=== PATIENT | male | born 1960 | race Caucasian/White ===

== ENCOUNTER 2019-10-14 10:38 | Observation (INO) ==
[2019-10-14 11:50] LABS: Basophils # 0.1 K/mcL (0.0-0.2); Basophils % 0.4 %; Eosinophils # 0.3 K/mcL (0.0-0.6); Eosinophils % 2.2 %; Hematocrit 53.7 % (37.5-50.1); Hemoglobin 17.3 g/dL (12.9-16.9); Immature Granulocytes % 0.7 % (0-4); Lymphocytes # 2.1 K/mcL (0.6-4.6); Lymphocytes % 18.6 %; Mean Corpuscular HGB Conc 32.2 g/dL (31.6-35.5); Mean Corpuscular Hemoglobin 27.4 pg (28.0-33.3); Mean Corpuscular Volume 85.1 fL (83.0-100.0); Mean Platelet Volume 9.1 fL (9.4-12.4); Monocytes % 8.4 %; Neutrophils # 7.9 K/mcL (1.6-8.9); Platelet Count 243 K/mcL (140-400); Red Blood Count 6.31 M/mcL (4.19-5.50); Red Cell Distribution Width 17.6 % (11.5-14.5); Segmented Neutrophils % 69.7 %; White Blood Count 11.3 K/mcL (4.3-11.1)
[2019-10-14 12:07] LABS: Prothrombin Time 22.6 Seconds (9.4-12.1)
[2019-10-14] MEDS ORDERED: Naloxone 0.4 MG/ML INJ IVP PRN (12:12)
[2019-10-14 12:16] LABS: BUN/Creatinine Ratio 17 (6-26); Blood Urea Nitrogen 20 mg/dL (8-23); Calcium 9.1 mg/dL (8.6-10.3); Carbon Dioxide 23 mEq/L (23-29); Chloride 107 mEq/L (98-107); Glucose 89 mg/dL (70-105); Osmolality,Calculated 284 (280-300); Potassium 4.6 mEq/L (3.5-5.1); Sodium 136 mEq/L (136-145); eGFR For African Americans > 60 (> 60); eGFR For Non-African Americans > 60 (> 60)
[2019-10-14] MEDS: Nicotine 21 MG PATCH.TD24 TD SCH (13:18)
[2019-10-14] MEDS: *HR* OxyCODONE Immed Rel 5 MG TABLET PO PRN ×2 (13:18→21:20)
[2019-10-14] MEDS: DilTIAZem CD (24hr) 120 MG CAP.ER.24H PO SCH (13:19)
[2019-10-14] MEDS: Insulin DETEMIR 100 UNIT/ML X5UNITS SQ SCH ×2 (13:19→21:21)
[2019-10-14] MEDS: Gabapentin 400 MG CAPSULE PO SCH ×2 (13:19→21:21)
[2019-10-14] MEDS ORDERED: *HR* Heparin 5,000 UNIT/ML VIAL SQ SCH (14:00)
[2019-10-14] MEDS ORDERED: 0.9 % Sodium Chloride 250 ML ONE ×2 (14:39→18:29)
[2019-10-14] MEDS: Insulin LISPRO 300 UNITS/3 ML VIAL SQ SCH ×2 (18:56→21:16)
[2019-10-15] MEDS: *HR* HYDROcodone/Acet 5/325 mg TABLET PO PRN ×2 (02:25→23:17)
[2019-10-15 07:15] LABS: INR 1.3; Prothrombin Time 15.3 Seconds (9.4-12.1)
[2019-10-15] MEDS ORDERED: NON-FORMULARY MEDICATION 1 EACH EACH (Ezetimibe [Zetia] 10 MG) PO SCH (09:00)
[2019-10-15] MEDS: Insulin LISPRO 300 UNITS/3 ML VIAL SQ SCH ×4 (11:23→20:51)
[2019-10-15] MEDS: Insulin DETEMIR 100 UNIT/ML X5UNITS SQ SCH ×2 (11:23→21:31)
[2019-10-15] MEDS: Gabapentin 400 MG CAPSULE PO SCH ×3 (11:30→21:31)
[2019-10-15] MEDS: DilTIAZem CD (24hr) 120 MG CAP.ER.24H PO SCH (11:30)
[2019-10-15] MEDS: Finasteride 5 MG TABLET PO SCH (11:30)
[2019-10-15] MEDS: *HR* OxyCODONE Immed Rel 5 MG TABLET PO PRN ×2 (11:34→19:45)
[2019-10-15] MEDS: Nicotine 21 MG PATCH.TD24 TD SCH (11:35)
[2019-10-15] MEDS ORDERED: *HR* Heparin 10,000 UNIT/10 ML VIAL ONE (14:11)
[2019-10-15] MEDS ORDERED: Isovue-300 150 ML INFUS..BTL ONE (14:11)
[2019-10-15] MEDS ORDERED: 0.9 % Sodium Chloride 1,000 ML ONE ×2 (14:11→14:51)
[2019-10-15] MEDS ORDERED: *HR* Midazolam HCl 2 MG/2 ML VIAL ONE (14:50)
[2019-10-15] MEDS ORDERED: *HR* FentaNYL (PF) 100 MCG/2 ML VIAL ONE ×2 (14:50→15:47)
[2019-10-15] MEDS ORDERED: *HR* Alteplase (Cathflo) 2 MG VIAL ONE (15:34)
[2019-10-15] MEDS ORDERED: *HR* Metoprolol 5 MG/5 ML VIAL IVP ONE (15:43)
[2019-10-15] MEDS ORDERED: Water for inj. (sterile) 20 ML ONE (16:01)
[2019-10-15] MEDS ORDERED: Ondansetron 4 MG/2 ML VIAL IVP PRN (16:43)
[2019-10-15] MEDS ORDERED: Acetaminophen 325 MG TABLET PO PRN (16:43)
[2019-10-15] MEDS ORDERED: *HR* Atropine Sulfate 1 MG/10 ML SYRINGE ONE (18:32)
[2019-10-16] MEDS: *HR* OxyCODONE Immed Rel 5 MG TABLET PO PRN (02:08)
[2019-10-16 04:17] LABS: Basophils # 0.1 K/mcL (0.0-0.2); Basophils % 0.5 %; Eosinophils # 0.2 K/mcL (0.0-0.6); Eosinophils % 2.1 %; Hemoglobin 16.1 g/dL (12.9-16.9); Immature Granulocytes % 0.4 % (0-4); Lymphocytes # 2.1 K/mcL (0.6-4.6); Lymphocytes % 21.7 %; Mean Corpuscular Hemoglobin 26.9 pg (28.0-33.3); Mean Corpuscular Volume 86.8 fL (83.0-100.0); Mean Platelet Volume 9.2 fL (9.4-12.4); Monocytes # 1.1 K/mcL (0.0-1.3); Monocytes % 11.1 %; Neutrophils # 6.3 K/mcL (1.6-8.9); Platelet Count 227 K/mcL (140-400); Red Blood Count 5.99 M/mcL (4.19-5.50); Red Cell Distribution Width 17.3 % (11.5-14.5); Segmented Neutrophils % 64.2 %; White Blood Count 9.8 K/mcL (4.3-11.1)
[2019-10-16 04:28] LABS: BUN/Creatinine Ratio 19 (6-26); Blood Urea Nitrogen 15 mg/dL (8-23); Calcium 8.6 mg/dL (8.6-10.3); Carbon Dioxide 23 mEq/L (23-29); Chloride 106 mEq/L (98-107); Glucose 112 mg/dL (70-105); Osmolality,Calculated 278 (280-300); Potassium 4.5 mEq/L (3.5-5.1); Sodium 133 mEq/L (136-145); eGFR For African Americans > 60 (> 60); eGFR For Non-African Americans > 60 (> 60)
[2019-10-16] MEDS: Insulin LISPRO 300 UNITS/3 ML VIAL SQ SCH ×2 (09:04→13:05)
[2019-10-16] MEDS: Finasteride 5 MG TABLET PO SCH (09:05)
[2019-10-16] MEDS: Gabapentin 400 MG CAPSULE PO SCH ×2 (09:06→13:05)
[2019-10-16] MEDS: DilTIAZem CD (24hr) 120 MG CAP.ER.24H PO SCH (09:06)
[2019-10-16] MEDS: *HR* HYDROcodone/Acet 5/325 mg TABLET PO PRN ×2 (09:06→16:01)
[2019-10-16] MEDS: Nicotine 21 MG PATCH.TD24 TD SCH (09:07)
[2019-10-16] MEDS: Insulin DETEMIR 100 UNIT/ML X5UNITS SQ SCH (09:08)
[2019-10-16 15:26] VITALS: BP 154/80
== END 2019-10-16 16:38 | disposition home health service (06) ==
LOC: 3ANU → SUATTDRO 12:12 → 2NNU 10-15 14:51
PROVIDERS: ADMIT Internal Medicine; ATTEND Internal Medicine

== ENCOUNTER 2019-10-22 15:52 | Inpatient (IN) ==
[2019-10-22 18:25] LABS: Basophils # 0.1 K/mcL (0.0-0.2); Basophils % 0.6 %; Eosinophils # 0.2 K/mcL (0.0-0.6); Eosinophils % 2.6 %; Hematocrit 51.5 % (37.5-50.1); Hemoglobin 16.6 g/dL (12.9-16.9); Immature Granulocytes % 0.8 % (0-4); Lymphocytes # 2.2 K/mcL (0.6-4.6); Lymphocytes % 23.9 %; Mean Corpuscular HGB Conc 32.2 g/dL (31.6-35.5); Mean Corpuscular Hemoglobin 27.2 pg (28.0-33.3); Mean Corpuscular Volume 84.4 fL (83.0-100.0); Monocytes # 0.9 K/mcL (0.0-1.3); Monocytes % 9.8 %; Neutrophils # 5.6 K/mcL (1.6-8.9); Platelet Count 286 K/mcL (140-400); Red Cell Distribution Width 16.9 % (11.5-14.5); Segmented Neutrophils % 62.3 %
[2019-10-22 18:40] LABS: BUN/Creatinine Ratio 17 (6-26); Blood Urea Nitrogen 17 mg/dL (8-23); C-Reactive Protein 31 mg/L (Less than 10); Calcium 8.5 mg/dL (8.6-10.3); Carbon Dioxide 23 mEq/L (23-29); Chloride 107 mEq/L (98-107); Glucose 146 mg/dL (70-105); Osmolality,Calculated 278 (280-300); Potassium 4.4 mEq/L (3.5-5.1); Sodium 132 mEq/L (136-145); eGFR For African Americans > 60 (> 60); eGFR For Non-African Americans > 60 (> 60)
[2019-10-22] MEDS ORDERED: Piperacillin/Tazobactam 3.375 GM in 0.9 % Sodium Chloride Mini Bag 100 ML IVPB ONE (18:46)
[2019-10-22] MEDS ORDERED: Naloxone 0.4 MG/ML INJ IVP PRN (21:13)
[2019-10-22] MEDS ORDERED: Ondansetron 4 MG/2 ML VIAL IVP PRN (22:49)
[2019-10-22] MEDS ORDERED: Acetaminophen 325 MG TABLET PO PRN (22:49)
[2019-10-22] MEDS: Nicotine 21 MG PATCH.TD24 TD SCH (23:46)
[2019-10-22] MEDS: *HR* HYDROmorphone (PF) 1 MG/ML SYRINGE IVP PRN (23:48)
[2019-10-23] MEDS: 0.9 % Sodium Chloride 1,000 ML IVC SCH (00:36)
[2019-10-23 03:07] LABS: Basophils % 0.5 %; Eosinophils # 0.2 K/mcL (0.0-0.6); Eosinophils % 2.7 %; Hematocrit 49.1 % (37.5-50.1); Hemoglobin 15.8 g/dL (12.9-16.9); Immature Granulocytes % 0.6 % (0-4); Lymphocytes # 2.3 K/mcL (0.6-4.6); Lymphocytes % 26.2 %; Mean Corpuscular HGB Conc 32.2 g/dL (31.6-35.5); Mean Corpuscular Hemoglobin 27.3 pg (28.0-33.3); Mean Corpuscular Volume 84.9 fL (83.0-100.0); Mean Platelet Volume 9.5 fL (9.4-12.4); Monocytes % 11.2 %; Neutrophils # 5.2 K/mcL (1.6-8.9); Platelet Count 256 K/mcL (140-400); Red Blood Count 5.78 M/mcL (4.19-5.50); Segmented Neutrophils % 58.8 %; White Blood Count 8.8 K/mcL (4.3-11.1)
[2019-10-23 03:23] LABS: BUN/Creatinine Ratio 17 (6-26); Blood Urea Nitrogen 16 mg/dL (8-23); Calcium 8.3 mg/dL (8.6-10.3); Carbon Dioxide 24 mEq/L (23-29); Chloride 106 mEq/L (98-107); Glucose 159 mg/dL (70-105); Magnesium 1.9 mg/dL (1.6-2.6); Osmolality,Calculated 283 (280-300); Potassium 4.3 mEq/L (3.5-5.1); Sodium 134 mEq/L (136-145); eGFR For African Americans > 60 (> 60); eGFR For Non-African Americans > 60 (> 60)
[2019-10-23] MEDS: *HR* HYDROmorphone (PF) 1 MG/ML SYRINGE IVP PRN ×4 (04:04→23:22)
[2019-10-23] MEDS: Piperacillin/Tazobactam 3.375 GM in 0.9 % Sodium Chloride Mini Bag 100 ML IVPB SCH ×3 (04:06→21:57)
[2019-10-23] MEDS ORDERED: D5% in Water 1,000 ML IVC PRN (09:43)
[2019-10-23] MEDS ORDERED: *HR* Dextrose 50 % in Water (Syg) 50 ML SYRINGE IVP PRN (09:43)
[2019-10-23] MEDS ORDERED: Dextrose Gel 15 GM/37.5 ML TUBE PO PRN ×2 (09:43)
[2019-10-23] MEDS: Insulin LISPRO 300 UNITS/3 ML VIAL SQ SCH ×3 (12:44→21:46)
[2019-10-23 18:33] LABS: Heparin anti-factor XA UFH < 0.04 IU/mL (0.30-0.70)
[2019-10-23 18:34] LABS: INR 2.5; Prothrombin Time 28.3 Seconds (9.4-12.1)
[2019-10-23] MEDS ORDERED: Dexamethasone 4 MG/ML VIAL ONE (19:30)
[2019-10-23] MEDS ORDERED: Ondansetron 4 MG/2 ML VIAL ONE (19:30)
[2019-10-23] MEDS ORDERED: Lidocaine -MPF 2% 2 ML VIAL ONE (19:30)
[2019-10-23] MEDS ORDERED: *HR* Midazolam HCl 2 MG/2 ML VIAL ONE (19:30)
[2019-10-23] MEDS ORDERED: *HR* Propofol 200 MG/20 ML VIAL IVP ONE (19:32)
[2019-10-23] MEDS ORDERED: *HR* FentaNYL (PF) 100 MCG/2 ML VIAL ONE (19:33)
[2019-10-23] MEDS ORDERED: *HR* HYDROmorphone PF 0.5 MG/0.5 ML SYRINGE IVP PRN (19:51)
[2019-10-23] MEDS ORDERED: *HR* OxyCODONE Immed Rel 5 MG TABLET PO PRN (19:51)
[2019-10-23] MEDS: Gabapentin 400 MG CAPSULE PO SCH (21:57)
[2019-10-23] MEDS: Nicotine 21 MG PATCH.TD24 TD SCH (23:14)
[2019-10-24] MEDS: Insulin LISPRO 300 UNITS/3 ML VIAL SQ SCH ×5 (00:33→21:10)
[2019-10-24] MEDS ORDERED: *HR* Heparin 5,000 UNIT/ML VIAL IVP PRN ×2 (03:30)
[2019-10-24] MEDS: *HR* HYDROmorphone (PF) 1 MG/ML SYRINGE IVP PRN (03:35)
[2019-10-24] MEDS: Piperacillin/Tazobactam 3.375 GM in 0.9 % Sodium Chloride Mini Bag 100 ML IVPB SCH ×3 (03:40→20:51)
[2019-10-24] MEDS ORDERED: Heparin 25,000 UNIT/250 ML D5W 25,000 UNIT/250 ML IV.SOLN IVC SCH (04:00)
[2019-10-24] MEDS ORDERED: *HR* HYDROmorphone (PF) 1 MG/ML SYRINGE ONE ×2 (08:16)
[2019-10-24] MEDS ORDERED: Piperacillin/Tazobactam 3.375 GM VIAL ONE (08:16)
[2019-10-24] MEDS ORDERED: Gabapentin 400 MG CAPSULE ONE ×2 (08:16)
[2019-10-24] MEDS ORDERED: 0.9 % Sodium Chloride (Mini-Bag +) 100 ML IVBAG ONE (08:16)
[2019-10-24] MEDS ORDERED: DilTIAZem CD (24hr) 120 MG CAP.ER.24H PO ONE (08:16)
[2019-10-24 14:29] LABS: INR 2.7; Prothrombin Time 30.4 Seconds (9.4-12.1)
[2019-10-24] MEDS ORDERED: Sennosides/Docusate Sodium TABLET PO PRN (15:50)
[2019-10-24] MEDS ORDERED: *HR* OxyCODONE Immed Rel 5 MG TABLET PO PRN (15:58)
[2019-10-24 16:52] LABS: Basophils % 0.2 %; Eosinophils % 0.1 %; Hemoglobin 16.4 g/dL (12.9-16.9); Immature Granulocytes % 0.7 % (0-4); Lymphocytes # 1.2 K/mcL (0.6-4.6); Mean Corpuscular HGB Conc 31.5 g/dL (31.6-35.5); Mean Corpuscular Hemoglobin 26.5 pg (28.0-33.3); Mean Corpuscular Volume 83.9 fL (83.0-100.0); Mean Platelet Volume 9.3 fL (9.4-12.4); Monocytes # 0.7 K/mcL (0.0-1.3); Monocytes % 6.6 %; Platelet Count 302 K/mcL (140-400); Red Cell Distribution Width 16.7 % (11.5-14.5); Segmented Neutrophils % 81.4 %; White Blood Count 11.1 K/mcL (4.3-11.1)
[2019-10-24] MEDS ORDERED: polyethylene glycoL 3350 17 GM POWD.PACK PO PRN (18:51)
[2019-10-24] MEDS: DilTIAZem CD (24hr) 120 MG CAP.ER.24H PO SCH (18:53)
[2019-10-24] MEDS: Gabapentin 400 MG CAPSULE PO SCH ×2 (18:53→20:53)
[2019-10-24] MEDS ORDERED: Insulin DETEMIR 100 UNIT/ML X5UNITS SQ SCH (21:00)
[2019-10-24] MEDS: *HR* OxyCODONE Immed Rel 5 MG TABLET PO PRN (21:07)
[2019-10-24] MEDS: Nicotine 21 MG PATCH.TD24 TD SCH (23:03)
[2019-10-25 01:06] LABS: BUN/Creatinine Ratio 19 (6-26); Blood Urea Nitrogen 18 mg/dL (8-23); Calcium 8.8 mg/dL (8.6-10.3); Carbon Dioxide 21 mEq/L (23-29); Chloride 102 mEq/L (98-107); Glucose 211 mg/dL (70-105); Osmolality,Calculated 278 (280-300); Potassium 5.2 mEq/L (3.5-5.1); Sodium 130 mEq/L (136-145); eGFR For African Americans > 60 (> 60); eGFR For Non-African Americans > 60 (> 60)
[2019-10-25] MEDS: *HR* OxyCODONE Immed Rel 5 MG TABLET PO PRN ×5 (04:21→22:06)
[2019-10-25] MEDS: Piperacillin/Tazobactam 3.375 GM in 0.9 % Sodium Chloride Mini Bag 100 ML IVPB SCH ×3 (04:22→21:35)
[2019-10-25 05:37] LABS: Basophils # 0.1 K/mcL (0.0-0.2); Basophils % 0.6 %; Eosinophils # 0.1 K/mcL (0.0-0.6); Eosinophils % 1.5 %; Hematocrit 51.9 % (37.5-50.1); Hemoglobin 16.3 g/dL (12.9-16.9); Immature Granulocytes % 0.6 % (0-4); Lymphocytes # 2.3 K/mcL (0.6-4.6); Mean Corpuscular HGB Conc 31.4 g/dL (31.6-35.5); Mean Corpuscular Hemoglobin 26.5 pg (28.0-33.3); Mean Corpuscular Volume 84.4 fL (83.0-100.0); Mean Platelet Volume 9.2 fL (9.4-12.4); Monocytes % 10.4 %; Platelet Count 277 K/mcL (140-400); Red Blood Count 6.15 M/mcL (4.19-5.50); Red Cell Distribution Width 16.3 % (11.5-14.5); Segmented Neutrophils % 62.9 %; White Blood Count 9.6 K/mcL (4.3-11.1)
[2019-10-25 05:46] LABS: INR 1.4; Prothrombin Time 16.1 Seconds (9.4-12.1)
[2019-10-25] MEDS: Finasteride 5 MG TABLET PO SCH (08:08)
[2019-10-25] MEDS: Furosemide 40 MG TABLET PO SCH (08:09)
[2019-10-25] MEDS: DilTIAZem CD (24hr) 120 MG CAP.ER.24H PO SCH (08:09)
[2019-10-25] MEDS: Gabapentin 400 MG CAPSULE PO SCH ×3 (08:09→22:02)
[2019-10-25] MEDS: Psyllium 1 PACKET POWD.PACK PO SCH (08:10)
[2019-10-25] MEDS: Insulin LISPRO 300 UNITS/3 ML VIAL SQ SCH ×4 (08:24→21:56)
[2019-10-25] MEDS: *HR* Enoxaparin 100 MG/ML SYRINGE SQ SCH (17:43)
[2019-10-25] MEDS: Insulin DETEMIR 100 UNIT/ML X5UNITS SQ SCH (21:37)
[2019-10-25] MEDS: Nicotine 21 MG PATCH.TD24 TD SCH (22:08)
[2019-10-26] MEDS: *HR* OxyCODONE Immed Rel 5 MG TABLET PO PRN ×5 (02:09→22:20)
[2019-10-26] MEDS: Piperacillin/Tazobactam 3.375 GM in 0.9 % Sodium Chloride Mini Bag 100 ML IVPB SCH ×3 (05:09→22:22)
[2019-10-26] MEDS: *HR* Enoxaparin 100 MG/ML SYRINGE SQ SCH (05:10)
[2019-10-26 07:37] LABS: Basophils # 0.1 K/mcL (0.0-0.2); Basophils % 0.9 %; Eosinophils # 0.3 K/mcL (0.0-0.6); Eosinophils % 3.2 %; Hematocrit 50.5 % (37.5-50.1); Hemoglobin 16.5 g/dL (12.9-16.9); Lymphocytes # 2.3 K/mcL (0.6-4.6); Lymphocytes % 24.2 %; Mean Corpuscular HGB Conc 32.7 g/dL (31.6-35.5); Mean Corpuscular Hemoglobin 27.5 pg (28.0-33.3); Mean Platelet Volume 9.2 fL (9.4-12.4); Monocytes # 1.1 K/mcL (0.0-1.3); Monocytes % 11.4 %; Neutrophils # 5.6 K/mcL (1.6-8.9); Platelet Count 274 K/mcL (140-400); Red Blood Count 6.01 M/mcL (4.19-5.50); Segmented Neutrophils % 59.3 %; White Blood Count 9.4 K/mcL (4.3-11.1)
[2019-10-26 07:48] LABS: INR 1.2
[2019-10-26 07:56] LABS: BUN/Creatinine Ratio 28 (6-26); Blood Urea Nitrogen 27 mg/dL (8-23); Calcium 8.8 mg/dL (8.6-10.3); Carbon Dioxide 24 mEq/L (23-29); Chloride 102 mEq/L (98-107); Glucose 197 mg/dL (70-105); Osmolality,Calculated 285 (280-300); Potassium 4.1 mEq/L (3.5-5.1); Sodium 132 mEq/L (136-145); eGFR For African Americans > 60 (> 60); eGFR For Non-African Americans > 60 (> 60)
[2019-10-26] MEDS: Furosemide 40 MG TABLET PO SCH (08:13)
[2019-10-26] MEDS: Finasteride 5 MG TABLET PO SCH (08:13)
[2019-10-26] MEDS: Psyllium 1 PACKET POWD.PACK PO SCH (08:14)
[2019-10-26] MEDS: Gabapentin 400 MG CAPSULE PO SCH ×3 (08:15→22:32)
[2019-10-26] MEDS: DilTIAZem CD (24hr) 120 MG CAP.ER.24H PO SCH (08:15)
[2019-10-26] MEDS: Insulin LISPRO 300 UNITS/3 ML VIAL SQ SCH ×4 (08:18→23:17)
[2019-10-26] MEDS: Apixaban 5 MG TABLET PO SCH ×2 (12:24→22:32)
[2019-10-26] MEDS: 0.9 % Sodium Chloride 1,000 ML IVC SCH (22:08)
[2019-10-26] MEDS: Nicotine 21 MG PATCH.TD24 TD SCH (22:33)
[2019-10-26] MEDS: Insulin DETEMIR 100 UNIT/ML X5UNITS SQ SCH (23:17)
[2019-10-27 03:10] LABS: Basophils # 0.1 K/mcL (0.0-0.2); Eosinophils # 0.3 K/mcL (0.0-0.6); Hematocrit 50.2 % (37.5-50.1); Hemoglobin 16.2 g/dL (12.9-16.9); Immature Granulocytes % 1.3 % (0-4); Mean Corpuscular HGB Conc 32.3 g/dL (31.6-35.5); Mean Corpuscular Volume 83.7 fL (83.0-100.0); Mean Platelet Volume 9.3 fL (9.4-12.4); Monocytes # 1.1 K/mcL (0.0-1.3); Monocytes % 12.1 %; Neutrophils # 5.5 K/mcL (1.6-8.9); Platelet Count 275 K/mcL (140-400); Red Cell Distribution Width 15.5 % (11.5-14.5); Segmented Neutrophils % 60.6 %; White Blood Count 9.1 K/mcL (4.3-11.1)
[2019-10-27 03:32] LABS: BUN/Creatinine Ratio 26 (6-26); Blood Urea Nitrogen 22 mg/dL (8-23); Calcium 8.6 mg/dL (8.6-10.3); Carbon Dioxide 22 mEq/L (23-29); Chloride 102 mEq/L (98-107); Glucose 242 mg/dL (70-105); Osmolality,Calculated 283 (280-300); Potassium 4.3 mEq/L (3.5-5.1); Sodium 131 mEq/L (136-145); eGFR For African Americans > 60 (> 60); eGFR For Non-African Americans > 60 (> 60)
[2019-10-27] MEDS: Piperacillin/Tazobactam 3.375 GM in 0.9 % Sodium Chloride Mini Bag 100 ML IVPB SCH ×3 (04:50→21:28)
[2019-10-27] MEDS: *HR* OxyCODONE Immed Rel 5 MG TABLET PO PRN ×4 (04:51→21:26)
[2019-10-27] MEDS: Furosemide 40 MG TABLET PO SCH (08:32)
[2019-10-27] MEDS: Apixaban 5 MG TABLET PO SCH ×2 (08:32→21:26)
[2019-10-27] MEDS: Gabapentin 400 MG CAPSULE PO SCH ×3 (08:33→21:27)
[2019-10-27] MEDS: DilTIAZem CD (24hr) 120 MG CAP.ER.24H PO SCH (08:33)
[2019-10-27] MEDS: Finasteride 5 MG TABLET PO SCH (08:33)
[2019-10-27] MEDS: Insulin LISPRO 300 UNITS/3 ML VIAL SQ SCH ×4 (08:37→21:27)
[2019-10-27] MEDS: Psyllium 1 PACKET POWD.PACK PO SCH (11:24)
[2019-10-27] MEDS ORDERED: Insulin DETEMIR 100 UNIT/ML X5UNITS SQ SCH (21:00)
[2019-10-27] MEDS: Nicotine 21 MG PATCH.TD24 TD SCH (21:27)
[2019-10-28 01:28] LABS: Hematocrit 48.8 % (37.5-50.1); Hemoglobin 15.8 g/dL (12.9-16.9); Mean Corpuscular HGB Conc 32.4 g/dL (31.6-35.5); Mean Corpuscular Hemoglobin 27.1 pg (28.0-33.3); Mean Corpuscular Volume 83.7 fL (83.0-100.0); Mean Platelet Volume 9.3 fL (9.4-12.4); Platelet Count 256 K/mcL (140-400); Red Blood Count 5.83 M/mcL (4.19-5.50); Red Cell Distribution Width 15.3 % (11.5-14.5); White Blood Count 10.5 K/mcL (4.3-11.1)
[2019-10-28] MEDS: *HR* OxyCODONE Immed Rel 5 MG TABLET PO PRN ×3 (01:35→12:52)
[2019-10-28 01:46] LABS: BUN/Creatinine Ratio 29 (6-26); Blood Urea Nitrogen 28 mg/dL (8-23); Calcium 8.7 mg/dL (8.6-10.3); Carbon Dioxide 23 mEq/L (23-29); Chloride 102 mEq/L (98-107); Glucose 193 mg/dL (70-105); Osmolality,Calculated 283 (280-300); Potassium 4.3 mEq/L (3.5-5.1); Sodium 131 mEq/L (136-145); eGFR For African Americans > 60 (> 60); eGFR For Non-African Americans > 60 (> 60)
[2019-10-28] MEDS: Piperacillin/Tazobactam 3.375 GM in 0.9 % Sodium Chloride Mini Bag 100 ML IVPB SCH ×2 (03:50→12:51)
[2019-10-28] MEDS: Psyllium 1 PACKET POWD.PACK PO SCH (08:57)
[2019-10-28] MEDS: Apixaban 5 MG TABLET PO SCH (08:58)
[2019-10-28] MEDS: Finasteride 5 MG TABLET PO SCH (08:58)
[2019-10-28] MEDS: DilTIAZem CD (24hr) 120 MG CAP.ER.24H PO SCH (08:59)
[2019-10-28] MEDS: Gabapentin 400 MG CAPSULE PO SCH ×2 (08:59→12:51)
[2019-10-28] MEDS: Furosemide 40 MG TABLET PO SCH (08:59)
[2019-10-28] MEDS ORDERED: lisinopriL 5 MG TABLET PO SCH (09:00)
[2019-10-28] MEDS: Insulin LISPRO 300 UNITS/3 ML VIAL SQ SCH ×2 (09:01→12:54)
[2019-10-28] MEDS ORDERED: Sennosides/Docusate Sodium TABLET PO SCH (11:15)
[2019-10-28 11:39] VITALS: BP 124/66
[2019-10-28] MEDS ORDERED: Insulin LISPRO 300 UNITS/3 ML VIAL SQ SCH (12:00)
[2019-10-28] MEDS ORDERED: levoFLOXacin 750 MG TABLET PO SCH (14:30)
[2019-10-28] MEDS ORDERED: Aminoglycoside Consult 1 EACH MC ONE (16:33)
== END 2019-10-28 16:34 | disposition home health service (06) | DRG 256 ==
LOC: EMEROOARM 15:52 → 3NENU 15:52 → SUATTDRO 21:19 → 3NENU 21:55
PROVIDERS: ADMIT Student in an Organized Health Care Education/Training Program; ATTEND Student in an Organized Health Care Education/Training Program

== ENCOUNTER 2020-01-01 09:52 | Inpatient (IN) ==
[2020-01-01] MEDS ORDERED: Isovue-370 500 ML BOTTLE IVP ONE (11:13)
[2020-01-01] MEDS ORDERED: Piperacillin/Tazobactam 3.375 GM in 0.9 % Sodium Chloride Mini Bag 100 ML IVPB ONE (11:14)
[2020-01-01] MEDS ORDERED: 0.9 % Sodium Chloride 1,000 ML IVC ONE ×2 (11:15→12:05)
[2020-01-01] MEDS ORDERED: Morphine Sulfate 2 MG/ML SYRINGE IVP ONE ×2 (11:15→12:05)
[2020-01-01 11:34] LABS: Basophils # 0.1 K/mcL (0.0-0.2); Basophils % 0.4 %; Eosinophils # 0.2 K/mcL (0.0-0.6); Hematocrit 45.6 % (37.5-50.1); Hemoglobin 14.3 g/dL (12.9-16.9); Lymphocytes # 1.9 K/mcL (0.6-4.6); Lymphocytes % 12.6 %; Mean Corpuscular HGB Conc 31.4 g/dL (31.6-35.5); Mean Corpuscular Hemoglobin 26.7 pg (28.0-33.3); Mean Corpuscular Volume 85.2 fL (83.0-100.0); Monocytes # 1.1 K/mcL (0.0-1.3); Platelet Count 445 K/mcL (140-400); Red Blood Count 5.35 M/mcL (4.19-5.50); Red Cell Distribution Width 16.3 % (11.5-14.5); White Blood Count 15.3 K/mcL (4.3-11.1)
[2020-01-01] MEDS ORDERED: Vancomycin 1,500 MG/265 ML IV.SOLN IVPB ONE (12:00)
[2020-01-01 12:01] LABS: BUN/Creatinine Ratio 18 (6-26); Blood Urea Nitrogen 17 mg/dL (8-23); C-Reactive Protein 55 mg/L (Less than 10); Carbon Dioxide 21 mEq/L (23-29); Chloride 102 mEq/L (98-107); Glucose 127 mg/dL (70-105); Osmolality,Calculated 279 (280-300); Potassium 4.8 mEq/L (3.5-5.1); Sodium 133 mEq/L (136-145); eGFR For African Americans > 60 (> 60); eGFR For Non-African Americans > 60 (> 60)
[2020-01-01] MEDS ORDERED: Acetaminophen 325 MG TABLET PO PRN (14:02)
[2020-01-01] MEDS ORDERED: Ondansetron ODT 4 MG TAB.RAPDIS SL PRN (14:02)
[2020-01-01] MEDS ORDERED: Dextrose Gel 15 GM/37.5 ML TUBE PO PRN ×2 (14:02)
[2020-01-01] MEDS ORDERED: Naloxone 0.4 MG/ML INJ IVP PRN (14:02)
[2020-01-01] MEDS ORDERED: *HR* Dextrose 50 % in Water (Syg) 50 ML SYRINGE IVP PRN (14:02)
[2020-01-01] MEDS ORDERED: D5% in Water 1,000 ML IVC PRN (14:02)
[2020-01-01] MEDS ORDERED: Vancomycin (wt based) 1,000 MG VIAL IVPB SCH (15:00)
[2020-01-01] MEDS ORDERED: *HR* Heparin 5,000 UNIT/ML VIAL IVP PRN ×2 (19:52)
[2020-01-01] MEDS ORDERED: *HR* Heparin 5,000 UNIT/ML VIAL IVP ONE (19:52)
[2020-01-01] MEDS ORDERED: Heparin 25,000 UNIT/250 ML D5W 25,000 UNIT/250 ML IV.SOLN IVC SCH (20:00)
[2020-01-01] MEDS: Insulin LISPRO 300 UNITS/3 ML VIAL SQ SCH ×2 (20:12→20:26)
[2020-01-01 20:15] LABS: Hematocrit 41.9 % (37.5-50.1); Hemoglobin 13.2 g/dL (12.9-16.9); Mean Corpuscular HGB Conc 31.5 g/dL (31.6-35.5); Mean Corpuscular Hemoglobin 26.8 pg (28.0-33.3); Mean Corpuscular Volume 85.2 fL (83.0-100.0); Mean Platelet Volume 8.9 fL (9.4-12.4); Platelet Count 367 K/mcL (140-400); Red Blood Count 4.92 M/mcL (4.19-5.50); Red Cell Distribution Width 16.3 % (11.5-14.5); White Blood Count 12.5 K/mcL (4.3-11.1)
[2020-01-01 20:19] LABS: Heparin anti-factor XA UFH 0.21 IU/mL (0.30-0.70)
[2020-01-01 20:20] LABS: INR 1.2; Prothrombin Time 14.1 Seconds (9.4-12.1)
[2020-01-01] MEDS: Gabapentin 400 MG CAPSULE PO SCH (20:24)
[2020-01-01] MEDS: Heparin 25,000 UNIT/250 ML D5W 25,000 UNIT/250 ML IV.SOLN IVC SCH (20:26)
[2020-01-01] MEDS ORDERED: Insulin DETEMIR 100 UNIT/ML X5UNITS SQ SCH (21:00)
[2020-01-01] MEDS ORDERED: Insulin DETEMIR 100 UNIT/ML X5UNITS SQ ONE (21:00)
[2020-01-01] MEDS ORDERED: Apixaban 5 MG TABLET PO SCH (21:00)
[2020-01-01] MEDS: Piperacillin/Tazobactam 3.375 GM in 0.9 % Sodium Chloride Mini Bag 100 ML IVPB SCH (23:44)
[2020-01-01] MEDS: Vancomycin 1,500 MG/265 ML IV.SOLN IVPB SCH (23:45)
[2020-01-02 03:22] LABS: Basophils # 0.1 K/mcL (0.0-0.2); Basophils % 0.7 %; Eosinophils # 0.2 K/mcL (0.0-0.6); Eosinophils % 2.4 %; Hematocrit 42.5 % (37.5-50.1); Hemoglobin 13.1 g/dL (12.9-16.9); Immature Granulocytes % 1.1 % (0-4); Lymphocytes # 2.1 K/mcL (0.6-4.6); Mean Corpuscular HGB Conc 30.8 g/dL (31.6-35.5); Mean Corpuscular Hemoglobin 26.3 pg (28.0-33.3); Mean Corpuscular Volume 85.3 fL (83.0-100.0); Mean Platelet Volume 8.8 fL (9.4-12.4); Monocytes % 9.7 %; Neutrophils # 6.5 K/mcL (1.6-8.9); Platelet Count 367 K/mcL (140-400); Red Blood Count 4.98 M/mcL (4.19-5.50); Red Cell Distribution Width 16.3 % (11.5-14.5); Segmented Neutrophils % 65.1 %
[2020-01-02 03:34] LABS: BUN/Creatinine Ratio 12 (6-26); Blood Urea Nitrogen 12 mg/dL (8-23); Calcium 8.5 mg/dL (8.6-10.3); Carbon Dioxide 25 mEq/L (23-29); Chloride 103 mEq/L (98-107); Glucose 89 mg/dL (70-105); Osmolality,Calculated 275 (280-300); Phosphorous 3.3 mg/dL (2.7-4.5); Potassium 4.5 mEq/L (3.5-5.1); Sodium 133 mEq/L (136-145); eGFR For African Americans > 60 (> 60); eGFR For Non-African Americans > 60 (> 60)
[2020-01-02] MEDS: Piperacillin/Tazobactam 3.375 GM in 0.9 % Sodium Chloride Mini Bag 100 ML IVPB SCH ×3 (08:42→16:42)
[2020-01-02] MEDS: Insulin LISPRO 300 UNITS/3 ML VIAL SQ SCH ×4 (09:29→20:10)
[2020-01-02] MEDS: Finasteride 5 MG TABLET PO SCH (09:39)
[2020-01-02] MEDS: Gabapentin 400 MG CAPSULE PO SCH ×3 (09:39→20:12)
[2020-01-02] MEDS: DilTIAZem CD (24hr) 120 MG CAP.ER.24H PO SCH (09:39)
[2020-01-02] MEDS: (Ezetimibe [Zetia] 10 MG) PO SCH (09:40)
[2020-01-02] MEDS: Vancomycin 1,500 MG/265 ML IV.SOLN IVPB SCH (12:25)
[2020-01-02] MEDS: Heparin 25,000 UNIT/250 ML D5W 25,000 UNIT/250 ML IV.SOLN IVC SCH (14:13)
[2020-01-02] MEDS ORDERED: *HR* OxyCODONE Immed Rel 5 MG TABLET PO PRN (15:50)
[2020-01-02] MEDS ORDERED: *HR* Promethazine 25 MG/ML VIAL IVP PRN (15:50)
[2020-01-02] MEDS ORDERED: *HR* HYDROmorphone PF 0.5 MG/0.5 ML SYRINGE IVP PRN (15:50)
[2020-01-02] MEDS ORDERED: Ondansetron 4 MG/2 ML VIAL IVP ONE (15:50)
[2020-01-02] MEDS ORDERED: *HR* Propofol 200 MG/20 ML VIAL IVP ONE (16:35)
[2020-01-02] MEDS ORDERED: Ondansetron 4 MG/2 ML VIAL ONE (16:35)
[2020-01-02] MEDS ORDERED: Lidocaine -MPF 2% 2 ML VIAL ONE (16:35)
[2020-01-02] MEDS ORDERED: *HR* Succinylcholine 200 MG/10 ML VIAL IVP ONE (16:35)
[2020-01-02] MEDS ORDERED: *HR* FentaNYL (PF) 100 MCG/2 ML VIAL ONE ×2 (16:35→17:34)
[2020-01-02] MEDS ORDERED: Acetaminophen IV 1,000 MG/100 ML INFUS..BTL ONE (16:40)
[2020-01-02] MEDS ORDERED: *HR* Midazolam HCl 2 MG/2 ML VIAL ONE (16:44)
[2020-01-02] MEDS ORDERED: *HR* Magnesium Sulfate 1 GM/2 ML VIAL ONE (17:20)
[2020-01-02] MEDS ORDERED: *HR* HYDROMORPHONE 2 MG/ML VIAL ONE (17:41)
[2020-01-02] MEDS ORDERED: Ketorolac 15 MG/ML VIAL IVP STA (19:03)
[2020-01-02] MEDS: D5% in 0.45% NACL 1,000 ML IVC SCH (20:18)
[2020-01-02 23:26] LABS: Hematocrit 40.8 % (37.5-50.1); Hemoglobin 12.9 g/dL (12.9-16.9)
[2020-01-03] MEDS: Morphine Sulfate 2 MG/ML SYRINGE IVP PRN ×4 (00:18→06:21)
[2020-01-03] MEDS: Apixaban 5 MG TABLET PO SCH ×3 (00:18→21:06)
[2020-01-03] MEDS: Vancomycin 1,500 MG/265 ML IV.SOLN IVPB SCH ×2 (00:20→12:34)
[2020-01-03] MEDS: Piperacillin/Tazobactam 3.375 GM in 0.9 % Sodium Chloride Mini Bag 100 ML IVPB SCH ×3 (00:22→16:52)
[2020-01-03 02:38] LABS: Basophils % 0.3 %; Eosinophils # 0.2 K/mcL (0.0-0.6); Eosinophils % 1.6 %; Hematocrit 41.7 % (37.5-50.1); Hemoglobin 12.7 g/dL (12.9-16.9); Lymphocytes # 1.7 K/mcL (0.6-4.6); Lymphocytes % 13.8 %; Mean Corpuscular HGB Conc 30.5 g/dL (31.6-35.5); Mean Corpuscular Hemoglobin 26.1 pg (28.0-33.3); Mean Corpuscular Volume 85.6 fL (83.0-100.0); Mean Platelet Volume 8.8 fL (9.4-12.4); Monocytes # 1.1 K/mcL (0.0-1.3); Monocytes % 8.6 %; Neutrophils # 9.1 K/mcL (1.6-8.9); Platelet Count 397 K/mcL (140-400); Red Blood Count 4.87 M/mcL (4.19-5.50); Red Cell Distribution Width 16.1 % (11.5-14.5); Segmented Neutrophils % 74.7 %; White Blood Count 12.2 K/mcL (4.3-11.1)
[2020-01-03 02:56] LABS: BUN/Creatinine Ratio 12 (6-26); Blood Urea Nitrogen 11 mg/dL (8-23); Calcium 8.3 mg/dL (8.6-10.3); Carbon Dioxide 24 mEq/L (23-29); Chloride 100 mEq/L (98-107); Glucose 299 mg/dL (70-105); Magnesium 2.2 mg/dL (1.6-2.6); Osmolality,Calculated 281 (280-300); Potassium 5.2 mEq/L (3.5-5.1); Sodium 130 mEq/L (136-145); eGFR For African Americans > 60 (> 60); eGFR For Non-African Americans > 60 (> 60)
[2020-01-03] MEDS ORDERED: *HR* HYDROmorphone 4 MG TABLET PO ONE (05:07)
[2020-01-03 07:36] LABS: Estimated Average Glucose 157 mg/dl
[2020-01-03] MEDS: Finasteride 5 MG TABLET PO SCH (07:56)
[2020-01-03] MEDS: DilTIAZem CD (24hr) 120 MG CAP.ER.24H PO SCH (07:57)
[2020-01-03] MEDS: Gabapentin 400 MG CAPSULE PO SCH ×3 (07:57→21:06)
[2020-01-03] MEDS: Nicotine 21 MG PATCH.TD24 TD SCH (07:57)
[2020-01-03] MEDS: Insulin LISPRO 300 UNITS/3 ML VIAL SQ SCH ×4 (07:58→21:08)
[2020-01-03] MEDS: (Ezetimibe [Zetia] 10 MG) PO SCH (07:58)
[2020-01-03] MEDS: D5% in 0.45% NACL 1,000 ML IVC SCH ×2 (08:07→21:20)
[2020-01-03 09:36] LABS: BUN/Creatinine Ratio 11 (6-26); Blood Urea Nitrogen 9 mg/dL (8-23); Calcium 8.7 mg/dL (8.6-10.3); Carbon Dioxide 25 mEq/L (23-29); Chloride 99 mEq/L (98-107); Glucose 194 mg/dL (70-105); Osmolality,Calculated 276 (280-300); Potassium 4.7 mEq/L (3.5-5.1); Sodium 131 mEq/L (136-145); eGFR For African Americans > 60 (> 60); eGFR For Non-African Americans > 60 (> 60)
[2020-01-04] MEDS: Piperacillin/Tazobactam 3.375 GM in 0.9 % Sodium Chloride Mini Bag 100 ML IVPB SCH ×3 (01:06→16:00)
[2020-01-04] MEDS: Vancomycin 1,500 MG/265 ML IV.SOLN IVPB SCH ×2 (01:07→13:06)
[2020-01-04 01:59] LABS: Basophils # 0.1 K/mcL (0.0-0.2); Basophils % 0.6 %; Eosinophils # 0.1 K/mcL (0.0-0.6); Eosinophils % 0.6 %; Hematocrit 46.2 % (37.5-50.1); Hemoglobin 13.6 g/dL (12.9-16.9); Immature Granulocytes % 0.9 % (0-4); Lymphocytes # 1.7 K/mcL (0.6-4.6); Lymphocytes % 13.6 %; Mean Corpuscular HGB Conc 29.4 g/dL (31.6-35.5); Mean Corpuscular Hemoglobin 26.3 pg (28.0-33.3); Mean Corpuscular Volume 89.2 fL (83.0-100.0); Mean Platelet Volume 8.7 fL (9.4-12.4); Monocytes # 1.9 K/mcL (0.0-1.3); Monocytes % 14.7 %; Neutrophils # 8.8 K/mcL (1.6-8.9); Platelet Count 326 K/mcL (140-400); Red Blood Count 5.18 M/mcL (4.19-5.50); Red Cell Distribution Width 15.9 % (11.5-14.5); Segmented Neutrophils % 69.6 %; White Blood Count 12.7 K/mcL (4.3-11.1)
[2020-01-04 02:30] LABS: BUN/Creatinine Ratio 14 (6-26); Blood Urea Nitrogen 12 mg/dL (8-23); Calcium 8.1 mg/dL (8.6-10.3); Carbon Dioxide 16 mEq/L (23-29); Chloride 100 mEq/L (98-107); Glucose 205 mg/dL (70-105); Magnesium 1.9 mg/dL (1.6-2.6); Osmolality,Calculated 268 (280-300); Potassium 5.1 mEq/L (3.5-5.1); Sodium 126 mEq/L (136-145); eGFR For African Americans > 60 (> 60); eGFR For Non-African Americans > 60 (> 60)
[2020-01-04] MEDS: Nicotine 21 MG PATCH.TD24 TD SCH (09:21)
[2020-01-04] MEDS: Gabapentin 400 MG CAPSULE PO SCH ×3 (09:24→21:26)
[2020-01-04] MEDS: Finasteride 5 MG TABLET PO SCH (09:24)
[2020-01-04] MEDS: (Ezetimibe [Zetia] 10 MG) PO SCH (09:24)
[2020-01-04] MEDS: Insulin LISPRO 300 UNITS/3 ML VIAL SQ SCH ×4 (09:25→21:31)
[2020-01-04] MEDS: DilTIAZem CD (24hr) 120 MG CAP.ER.24H PO SCH (09:25)
[2020-01-04] MEDS: Apixaban 5 MG TABLET PO SCH ×2 (09:26→21:26)
[2020-01-04] MEDS: Insulin DETEMIR 100 UNIT/ML X5UNITS SQ SCH (13:06)
[2020-01-04 16:49] LABS: BUN/Creatinine Ratio 15 (6-26); Blood Urea Nitrogen 14 mg/dL (8-23); Calcium 8.5 mg/dL (8.6-10.3); Carbon Dioxide 22 mEq/L (23-29); Chloride 101 mEq/L (98-107); Glucose 222 mg/dL (70-105); Osmolality,Calculated 277 (280-300); Potassium 4.9 mEq/L (3.5-5.1); Sodium 130 mEq/L (136-145); eGFR For African Americans > 60 (> 60); eGFR For Non-African Americans > 60 (> 60)
[2020-01-05] MEDS: 0.9 % Sodium Chloride 1,000 ML IVC SCH ×2 (00:35→17:42)
[2020-01-05] MEDS: Vancomycin 1,500 MG/265 ML IV.SOLN IVPB SCH (00:36)
[2020-01-05] MEDS: Piperacillin/Tazobactam 3.375 GM in 0.9 % Sodium Chloride Mini Bag 100 ML IVPB SCH ×3 (00:37→17:41)
[2020-01-05 06:35] LABS: Basophils # 0.1 K/mcL (0.0-0.2); Basophils % 0.7 %; Eosinophils # 0.2 K/mcL (0.0-0.6); Eosinophils % 1.8 %; Hematocrit 39.7 % (37.5-50.1); Hemoglobin 12.3 g/dL (12.9-16.9); Immature Granulocytes % 0.9 % (0-4); Lymphocytes # 2.1 K/mcL (0.6-4.6); Lymphocytes % 19.3 %; Mean Corpuscular Hemoglobin 26.3 pg (28.0-33.3); Mean Platelet Volume 9.1 fL (9.4-12.4); Monocytes # 1.5 K/mcL (0.0-1.3); Monocytes % 14.5 %; Neutrophils # 6.7 K/mcL (1.6-8.9); Platelet Count 413 K/mcL (140-400); Red Blood Count 4.67 M/mcL (4.19-5.50); Segmented Neutrophils % 62.8 %; White Blood Count 10.6 K/mcL (4.3-11.1)
[2020-01-05 07:02] LABS: BUN/Creatinine Ratio 16 (6-26); Blood Urea Nitrogen 14 mg/dL (8-23); Calcium 8.7 mg/dL (8.6-10.3); Carbon Dioxide 22 mEq/L (23-29); Chloride 101 mEq/L (98-107); Glucose 156 mg/dL (70-105); Osmolality,Calculated 276 (280-300); Potassium 4.5 mEq/L (3.5-5.1); Sodium 131 mEq/L (136-145); eGFR For African Americans > 60 (> 60); eGFR For Non-African Americans > 60 (> 60)
[2020-01-05] MEDS: (Ezetimibe [Zetia] 10 MG) PO SCH (09:00)
[2020-01-05] MEDS: Finasteride 5 MG TABLET PO SCH (10:20)
[2020-01-05] MEDS: Gabapentin 400 MG CAPSULE PO SCH ×3 (10:20→21:39)
[2020-01-05] MEDS: DilTIAZem CD (24hr) 120 MG CAP.ER.24H PO SCH (10:20)
[2020-01-05] MEDS: Apixaban 5 MG TABLET PO SCH ×2 (10:20→21:38)
[2020-01-05] MEDS: Nicotine 21 MG PATCH.TD24 TD SCH (10:20)
[2020-01-05] MEDS: Insulin LISPRO 300 UNITS/3 ML VIAL SQ SCH ×4 (10:21→21:48)
[2020-01-05] MEDS: Insulin DETEMIR 100 UNIT/ML X5UNITS SQ SCH (10:23)
[2020-01-05] MEDS: Vancomycin 1,750 MG/517.5 ML IV.SOLN IVPB SCH (17:43)
[2020-01-06] MEDS: Piperacillin/Tazobactam 3.375 GM in 0.9 % Sodium Chloride Mini Bag 100 ML IVPB SCH ×2 (00:40→08:57)
[2020-01-06 01:52] LABS: Basophils # 0.1 K/mcL (0.0-0.2); Basophils % 0.6 %; Eosinophils # 0.2 K/mcL (0.0-0.6); Eosinophils % 1.8 %; Hematocrit 39.1 % (37.5-50.1); Hemoglobin 12.3 g/dL (12.9-16.9); Immature Granulocytes % 1.1 % (0-4); Lymphocytes # 2.1 K/mcL (0.6-4.6); Lymphocytes % 19.1 %; Mean Corpuscular HGB Conc 31.5 g/dL (31.6-35.5); Mean Corpuscular Hemoglobin 26.8 pg (28.0-33.3); Mean Corpuscular Volume 85.2 fL (83.0-100.0); Monocytes # 1.3 K/mcL (0.0-1.3); Monocytes % 11.9 %; Neutrophils # 7.1 K/mcL (1.6-8.9); Platelet Count 369 K/mcL (140-400); Red Blood Count 4.59 M/mcL (4.19-5.50); Red Cell Distribution Width 15.7 % (11.5-14.5); Segmented Neutrophils % 65.5 %; White Blood Count 10.8 K/mcL (4.3-11.1)
[2020-01-06 02:14] LABS: BUN/Creatinine Ratio 21 (6-26); Blood Urea Nitrogen 18 mg/dL (8-23); Calcium 8.7 mg/dL (8.6-10.3); Carbon Dioxide 24 mEq/L (23-29); Chloride 99 mEq/L (98-107); Glucose 190 mg/dL (70-105); Osmolality,Calculated 275 (280-300); Potassium 4.5 mEq/L (3.5-5.1); Sodium 129 mEq/L (136-145); eGFR For African Americans > 60 (> 60); eGFR For Non-African Americans > 60 (> 60)
[2020-01-06] MEDS: Vancomycin 1,750 MG/517.5 ML IV.SOLN IVPB SCH (04:34)
[2020-01-06] MEDS: 0.9 % Sodium Chloride 1,000 ML IVC SCH ×3 (08:54→22:52)
[2020-01-06] MEDS: Nicotine 21 MG PATCH.TD24 TD SCH (08:57)
[2020-01-06] MEDS: Finasteride 5 MG TABLET PO SCH (08:58)
[2020-01-06] MEDS: Gabapentin 400 MG CAPSULE PO SCH ×3 (08:58→20:22)
[2020-01-06] MEDS: DilTIAZem CD (24hr) 120 MG CAP.ER.24H PO SCH (08:58)
[2020-01-06] MEDS: Apixaban 5 MG TABLET PO SCH ×2 (08:58→20:22)
[2020-01-06] MEDS: (Ezetimibe [Zetia] 10 MG) PO SCH (08:59)
[2020-01-06] MEDS: Insulin DETEMIR 100 UNIT/ML X5UNITS SQ SCH (08:59)
[2020-01-06] MEDS: Insulin LISPRO 300 UNITS/3 ML VIAL SQ SCH ×4 (08:59→20:23)
[2020-01-06] MEDS ORDERED: Aminoglycoside Consult 1 EACH MC ONE (09:22)
[2020-01-07 04:57] LABS: Hematocrit 40.3 % (37.5-50.1); Hemoglobin 11.8 g/dL (12.9-16.9); Mean Corpuscular HGB Conc 29.3 g/dL (31.6-35.5); Mean Corpuscular Hemoglobin 25.6 pg (28.0-33.3); Mean Corpuscular Volume 87.4 fL (83.0-100.0); Mean Platelet Volume 9.1 fL (9.4-12.4); Platelet Count 407 K/mcL (140-400); Red Blood Count 4.61 M/mcL (4.19-5.50); Red Cell Distribution Width 15.7 % (11.5-14.5)
[2020-01-07 05:16] LABS: BUN/Creatinine Ratio 19 (6-26); Blood Urea Nitrogen 15 mg/dL (8-23); Calcium 8.7 mg/dL (8.6-10.3); Carbon Dioxide 25 mEq/L (23-29); Chloride 101 mEq/L (98-107); Glucose 198 mg/dL (70-105); Osmolality,Calculated 282 (280-300); Potassium 4.1 mEq/L (3.5-5.1); Sodium 133 mEq/L (136-145); eGFR For African Americans > 60 (> 60); eGFR For Non-African Americans > 60 (> 60)
[2020-01-07] MEDS: Gabapentin 400 MG CAPSULE PO SCH ×2 (07:43→10:59)
[2020-01-07] MEDS: Insulin LISPRO 300 UNITS/3 ML VIAL SQ SCH ×2 (07:44→12:30)
[2020-01-07] MEDS: Insulin DETEMIR 100 UNIT/ML X5UNITS SQ SCH (07:44)
[2020-01-07] MEDS: DilTIAZem CD (24hr) 120 MG CAP.ER.24H PO SCH (07:44)
[2020-01-07] MEDS: Finasteride 5 MG TABLET PO SCH (07:44)
[2020-01-07] MEDS: Apixaban 5 MG TABLET PO SCH (07:44)
[2020-01-07] MEDS: Nicotine 21 MG PATCH.TD24 TD SCH (07:44)
[2020-01-07 15:25] VITALS: BP 133/71
== END 2020-01-07 17:17 | disposition other institution (70) | DRG 239 ==
LOC: 3BNU 09:52 → EMEROOARM 09:52 → SUATTDRO 14:05 → 3BNU 15:05
PROVIDERS: ADMIT Internal Medicine; ATTEND Internal Medicine

== ENCOUNTER 2020-09-21 08:42 | Observation (INO) ==
[2020-09-21] MEDS ORDERED: Levalbuterol Neb 1.25 MG/3 ML IH ONE (11:54)
[2020-09-21] MEDS ORDERED: Levalbuterol Neb 1.25 MG/3 ML ONE (11:56)
[2020-09-21] MEDS ORDERED: Ondansetron 4 MG/2 ML VIAL IVP PRN (11:58)
[2020-09-21] MEDS ORDERED: *HR* HYDROcodone/Acet 5/325 mg TABLET PO PRN (11:58)
[2020-09-21] MEDS ORDERED: Naloxone 0.4 MG/ML INJ IVP PRN (11:58)
[2020-09-21] MEDS ORDERED: D5% in Water 1,000 ML IVC PRN (12:03)
[2020-09-21] MEDS ORDERED: Dextrose Gel 15 GM/37.5 ML TUBE PO PRN ×2 (12:03)
[2020-09-21] MEDS ORDERED: *HR* Dextrose 50 % in Water (Vial) 50 ML VIAL IVP PRN (12:03)
[2020-09-21] MEDS ORDERED: cefTRIAXone 1,000 MG in Water for inj. (sterile) 10 ML IVP SCH (13:00)
[2020-09-21 13:13] LABS: INR 1.3; Prothrombin Time 14.8 Seconds (9.4-12.1)
[2020-09-21 13:31] LABS: Troponin I < 0.03 ng/mL (< 0.04)
[2020-09-21] MEDS ORDERED: Morphine Sulfate 2 MG/ML SYRINGE IVP ONE (14:06)
[2020-09-21] MEDS ORDERED: Morphine Sulfate 2 MG/ML SYRINGE IVP PRN (14:34)
[2020-09-21 14:55] LABS: Lactate Dehydrogenase 386 Units/L (140-271); Total Protein 6.6 g/dL (6.4-8.9)
[2020-09-21] MEDS: Azithromycin 500 MG in 0.9 % Sodium Chloride 250 ML IVPB SCH (15:03)
[2020-09-21] MEDS: MethylPREDNISolone 40 MG/ML VIAL IVP SCH ×2 (15:16→17:36)
[2020-09-21 16:23] LABS: RBC,Pleural Fluid 78000 RBC/mcL
[2020-09-21] MEDS: Ipratropium/Albuterol Neb 3 ML IH SCH ×2 (16:27→20:46)
[2020-09-21 16:30] LABS: ABG Base Excess -1 mEq/L (-2 to 3); ABG HCO3 23 mEq/L (21-27); ABG Oxygen Saturation 97 % (95-98); ABG PCO2 36 mmHg (35-45); ABG PH 7.42 pH Units (7.32-7.45); ABG PO2 86 mmHg (85-104); ABG TCO2 24 mEq/L (20-26)
[2020-09-21 16:31] LABS: Total Protein,Pleural Fluid 3.5 g/dL
[2020-09-21] MEDS: Insulin LISPRO 300 UNITS/3 ML VIAL SUBQ SCH (16:38)
[2020-09-21 17:06] LABS: Basophils,Pleural Fluid 0 %; Eosinophils,Pleural Fluid 0 %; Monocytes,Pleural Fluid 0 %
[2020-09-21 17:07] LABS: Appearance of Pleural Fl Bloody (Clear)
[2020-09-21] MEDS: Furosemide 20 MG/2 ML VIAL IVP SCH (17:36)
[2020-09-21] MEDS ORDERED: *HR* Metoprolol 5 MG/5 ML VIAL IVP ONE (20:34)
[2020-09-21] MEDS: DilTIAZem CD (24hr) 120 MG CAP.ER.24H PO SCH (21:24)
[2020-09-22] MEDS: Ipratropium/Albuterol Neb 3 ML IH SCH ×5 (00:18→16:02)
[2020-09-22] MEDS: Insulin LISPRO 300 UNITS/3 ML VIAL SUBQ SCH ×2 (01:38→06:21)
[2020-09-22 01:44] LABS: Basophils % 0.2 %; Hematocrit 48.7 % (37.5-50.1); Hemoglobin 15.1 g/dL (12.9-16.9); Immature Granulocytes % 0.8 % (0-4); Lymphocytes # 0.7 K/mcL (0.6-4.6); Lymphocytes % 7.5 %; Mean Corpuscular Hemoglobin 23.2 pg (28.0-33.3); Mean Corpuscular Volume 74.7 fL (83.0-100.0); Mean Platelet Volume 8.7 fL (9.4-12.4); Monocytes # 0.4 K/mcL (0.0-1.3); Monocytes % 3.5 %; Neutrophils # 8.7 K/mcL (1.6-8.9); Platelet Count 489 K/mcL (140-400); Red Blood Count 6.52 M/mcL (4.19-5.50); Red Cell Distribution Width 19.6 % (11.5-14.5); White Blood Count 9.9 K/mcL (4.3-11.1)
[2020-09-22 01:59] LABS: BUN/Creatinine Ratio 24 (6-26); Blood Urea Nitrogen 17 mg/dL (8-23); Calcium 8.8 mg/dL (8.6-10.3); Carbon Dioxide 22 mEq/L (23-29); Chloride 97 mEq/L (98-107); Glucose 231 mg/dL (70-105); Magnesium 2.2 mg/dL (1.6-2.6); Osmolality,Calculated 279 (280-300); Phosphorous 3.8 mg/dL (2.7-4.5); Sodium 130 mEq/L (136-145); eGFR For African Americans > 60 (> 60); eGFR For Non-African Americans > 60 (> 60)
[2020-09-22] MEDS: MethylPREDNISolone 40 MG/ML VIAL IVP SCH (06:20)
[2020-09-22] MEDS ORDERED: Lidocaine -MPF 4% 5 ML AMPUL ONE (07:27)
[2020-09-22] MEDS ORDERED: *HR* Propofol 200 MG/20 ML VIAL IVP ONE (07:33)
[2020-09-22] MEDS ORDERED: *HR* FentaNYL (PF) 100 MCG/2 ML VIAL ONE (07:33)
[2020-09-22] MEDS ORDERED: *HR* Midazolam HCl 2 MG/2 ML VIAL ONE (07:33)
[2020-09-22] MEDS ORDERED: Lidocaine -MPF 2% 2 ML VIAL ONE (07:35)
[2020-09-22] MEDS ORDERED: *HR* Rocuronium Bromide 50 MG/5 ML VIAL ONE ×2 (07:35→07:37)
[2020-09-22] MEDS ORDERED: *HR* Succinylcholine 200 MG/10 ML VIAL IVP ONE (07:35)
[2020-09-22] MEDS ORDERED: Ondansetron 4 MG/2 ML VIAL ONE (07:37)
[2020-09-22] MEDS ORDERED: cefTRIAXone 2,000 MG in Water for inj. (sterile) 20 ML IVP SCH (08:00)
[2020-09-22] MEDS ORDERED: *HR* EPINEPHrine 1 MG/10 ML SYRINGE INTRATRACH PRN (08:52)
[2020-09-22] MEDS ORDERED: *HR* EPINEPHrine 1 MG/10 ML SYRINGE ONE (08:56)
[2020-09-22] MEDS: Furosemide 20 MG/2 ML VIAL IVP SCH (11:33)
[2020-09-22] MEDS: DilTIAZem CD (24hr) 120 MG CAP.ER.24H PO SCH (11:33)
[2020-09-22] MEDS ORDERED: Aspirin 81 MG TAB.CHEW PO SCH (13:45)
[2020-09-22] MEDS: Azithromycin 500 MG in 0.9 % Sodium Chloride 250 ML IVPB SCH (14:51)
[2020-09-22 15:15] LABS: Source of Body Fluid LUL BAL
[2020-09-22 15:29] VITALS: BP 115/73
[2020-09-22] MEDS ORDERED: Insulin LISPRO 300 UNITS/3 ML VIAL SUBQ SCH ×2 (16:30→21:00)
[2020-09-22 17:22] LABS: Appearance of Body Fluid Hazy (Clear); Volume of Body Fluid 27 mL
[2020-09-22] MEDS ORDERED: Insulin DETEMIR 100 UNIT/ML X5UNITS SUBQ SCH (21:00)
== END 2020-09-22 16:40 | disposition home or self-care (01) ==
LOC: 2NENU
PROVIDERS: ADMIT Internal Medicine; ATTEND Internal Medicine

== ENCOUNTER 2020-09-24 22:04 | Inpatient (IN) ==
[2020-09-24] MEDS: Piperacillin/Tazobactam 3.375 GM in 0.9 % Sodium Chloride Mini Bag 100 ML IVPB SCH (23:50)
[2020-09-24] MEDS ORDERED: Ondansetron 4 MG/2 ML VIAL IVP PRN (23:53)
[2020-09-24] MEDS ORDERED: Naloxone 0.4 MG/ML INJ IVP PRN (23:53)
[2020-09-24] MEDS ORDERED: methylPREDNISolone 125 MG/2 ML VIAL IVP ONE (23:54)
[2020-09-24] MEDS ORDERED: traZODone 50 MG TABLET PO ONE (23:56)
[2020-09-24] MEDS ORDERED: Dextrose Gel 15 GM/37.5 ML TUBE PO PRN ×2 (23:59)
[2020-09-25 00:06] LABS: ABG Base Excess 0 mEq/L (-2 to 3); ABG HCO3 27 mEq/L (21-27); ABG Oxygen Saturation 92 % (95-98); ABG PCO2 54 mmHg (35-45); ABG PH 7.31 pH Units (7.32-7.45); ABG PO2 70 mmHg (85-104); ABG TCO2 29 mEq/L (20-26)
[2020-09-25] MEDS ORDERED: Insulin LISPRO 300 UNITS/3 ML VIAL SUBQ SCH ×2 (00:10)
[2020-09-25] MEDS: Insulin LISPRO 300 UNITS/3 ML VIAL SUBQ SCH ×5 (00:38→23:11)
[2020-09-25] MEDS: Ipratropium/Albuterol Neb 3 ML IH SCH ×4 (03:30→22:19)
[2020-09-25] MEDS: *HR* Heparin 5,000 UNIT/ML VIAL SQ SCH ×2 (04:47→18:17)
[2020-09-25] MEDS: Morphine Sulfate Oral CONC 10 MG/0.5 ML ORAL.SYG SL PRN ×2 (05:24→09:23)
[2020-09-25 05:58] LABS: Basophils % 0.1 %; Hematocrit 48.5 % (37.5-50.1); Hemoglobin 14.8 g/dL (12.9-16.9); Immature Granulocytes % 0.8 % (0-4); Lymphocytes # 0.5 K/mcL (0.6-4.6); Lymphocytes % 2.5 %; Mean Corpuscular HGB Conc 30.5 g/dL (31.6-35.5); Mean Corpuscular Hemoglobin 23.3 pg (28.0-33.3); Mean Corpuscular Volume 76.3 fL (83.0-100.0); Mean Platelet Volume 8.5 fL (9.4-12.4); Monocytes % 4.5 %; Neutrophils # 19.6 K/mcL (1.6-8.9); Platelet Count 561 K/mcL (140-400); Red Blood Count 6.36 M/mcL (4.19-5.50); Red Cell Distribution Width 19.9 % (11.5-14.5); Segmented Neutrophils % 92.1 %
[2020-09-25 06:00] LABS: White Blood Count 21.3 K/mcL (4.3-11.1)
[2020-09-25 06:16] LABS: ABG Base Excess 1 mEq/L (-2 to 3); ABG HCO3 27 mEq/L (21-27); ABG Oxygen Saturation 92 % (95-98); ABG PCO2 48 mmHg (35-45); ABG PH 7.36 pH Units (7.32-7.45); ABG PO2 67 mmHg (85-104); ABG TCO2 29 mEq/L (20-26)
[2020-09-25 06:17] LABS: BUN/Creatinine Ratio 40 (6-26); Blood Urea Nitrogen 34 mg/dL (8-23); Calcium 8.8 mg/dL (8.6-10.3); Carbon Dioxide 27 mEq/L (23-29); Chloride 103 mEq/L (98-107); Glucose 147 mg/dL (70-105); Osmolality,Calculated 292 (280-300); Potassium 5.4 mEq/L (3.5-5.1); Sodium 136 mEq/L (136-145); eGFR For African Americans > 60 (> 60); eGFR For Non-African Americans > 60 (> 60)
[2020-09-25] MEDS ORDERED: Azithromycin 500 MG in 0.9 % Sodium Chloride 250 ML IVPB SCH (08:00)
[2020-09-25] MEDS: MethylPREDNISolone 40 MG/ML VIAL IVP SCH ×3 (08:24→23:14)
[2020-09-25] MEDS: Piperacillin/Tazobactam 3.375 GM in 0.9 % Sodium Chloride Mini Bag 100 ML IVPB SCH ×3 (08:25→23:13)
[2020-09-25] MEDS: Vancomycin 1,250 MG/262.5 ML IV.SOLN IVPB SCH ×2 (08:28→21:03)
[2020-09-25] MEDS ORDERED: Furosemide 40 MG/4 ML VIAL IVP ONE (09:14)
[2020-09-25] MEDS: *HR* Metoprolol 5 MG/5 ML VIAL IVP PRN ×2 (09:22→16:55)
[2020-09-25] MEDS: Morphine Sulfate 2 MG/ML SYRINGE IVP PRN ×5 (12:12→20:55)
[2020-09-25] MEDS: DilTIAZem 50 MG/50 ML IV.SOLN IVC SCH ×2 (12:29→20:28)
[2020-09-25] MEDS: traZODone 50 MG TABLET PO SCH (21:10)
[2020-09-25] MEDS: Insulin DETEMIR 100 UNIT/ML X5UNITS SUBQ SCH (23:10)
[2020-09-26] MEDS: Morphine Sulfate 2 MG/ML SYRINGE IVP PRN ×5 (01:17→21:19)
[2020-09-26] MEDS: *HR* Metoprolol 5 MG/5 ML VIAL IVP PRN (01:18)
[2020-09-26 04:06] LABS: Immature Granulocytes % 1.4 % (0-4)
[2020-09-26 04:08] LABS: Basophils % 0.2 %; Hematocrit 50.9 % (37.5-50.1); Hemoglobin 15.1 g/dL (12.9-16.9); Lymphocytes # 0.7 K/mcL (0.6-4.6); Lymphocytes % 2.6 %; Mean Corpuscular HGB Conc 29.7 g/dL (31.6-35.5); Mean Corpuscular Hemoglobin 23.6 pg (28.0-33.3); Mean Corpuscular Volume 79.4 fL (83.0-100.0); Monocytes # 1.8 K/mcL (0.0-1.3); Monocytes % 6.9 %; Platelet Count 581 K/mcL (140-400); Red Blood Count 6.41 M/mcL (4.19-5.50); Red Cell Distribution Width 20.7 % (11.5-14.5); Segmented Neutrophils % 88.9 %; White Blood Count 25.8 K/mcL (4.3-11.1)
[2020-09-26 04:10] LABS: Basophils # 0.1 K/mcL (0.0-0.2); Neutrophils # 22.9 K/mcL (1.6-8.9)
[2020-09-26] MEDS: Ipratropium/Albuterol Neb 3 ML IH SCH ×4 (04:24→21:58)
[2020-09-26] MEDS: DilTIAZem 50 MG/50 ML IV.SOLN IVC SCH (04:31)
[2020-09-26] MEDS: *HR* Heparin 5,000 UNIT/ML VIAL SQ SCH ×2 (05:22→16:48)
[2020-09-26] MEDS: Insulin LISPRO 300 UNITS/3 ML VIAL SUBQ SCH ×3 (05:37→17:15)
[2020-09-26 06:14] LABS: BUN/Creatinine Ratio 53 (6-26); Blood Urea Nitrogen 41 mg/dL (8-23); Calcium 9.2 mg/dL (8.6-10.3); Carbon Dioxide 25 mEq/L (23-29); Chloride 101 mEq/L (98-107); Glucose 132 mg/dL (70-105); Magnesium 2.4 mg/dL (1.6-2.6); Osmolality,Calculated 298 (280-300); Phosphorous 3.9 mg/dL (2.7-4.5); Potassium 4.8 mEq/L (3.5-5.1); Sodium 138 mEq/L (136-145); eGFR For African Americans > 60 (> 60); eGFR For Non-African Americans > 60 (> 60)
[2020-09-26] MEDS ORDERED: *HR* Propofol 200 MG/20 ML VIAL IVP ONE (07:03)
[2020-09-26] MEDS ORDERED: Lidocaine -MPF 2% 2 ML VIAL ONE (07:05)
[2020-09-26] MEDS ORDERED: *HR* Succinylcholine 200 MG/10 ML VIAL IVP ONE (07:05)
[2020-09-26] MEDS ORDERED: Ondansetron 4 MG/2 ML VIAL ONE (07:24)
[2020-09-26] MEDS ORDERED: *HR* FentaNYL (PF) 100 MCG/2 ML VIAL ONE (07:24)
[2020-09-26] MEDS ORDERED: Lidocaine -MPF 4% 5 ML AMPUL ONE (07:25)
[2020-09-26] MEDS: Piperacillin/Tazobactam 3.375 GM in 0.9 % Sodium Chloride Mini Bag 100 ML IVPB SCH ×2 (08:46→16:05)
[2020-09-26] MEDS: MethylPREDNISolone 40 MG/ML VIAL IVP SCH ×2 (08:46→16:05)
[2020-09-26] MEDS: Furosemide 40 MG/4 ML VIAL IVP SCH ×2 (08:46→19:37)
[2020-09-26 09:20] LABS: INR 1.5; Prothrombin Time 16.9 Seconds (9.4-12.1)
[2020-09-26] MEDS: Doxycycline 100 MG in 0.9 % Sodium Chloride Mini Bag 100 ML IVPB SCH ×2 (10:15→16:45)
[2020-09-26] MEDS: Vancomycin 1,500 MG/265 ML IV.SOLN IVPB SCH ×2 (10:15→21:17)
[2020-09-26] MEDS: Vancomycin 1,250 MG/262.5 ML IV.SOLN IVPB SCH (10:25)
[2020-09-26] MEDS: DilTIAZem CD (24hr) 120 MG CAP.ER.24H PO SCH (16:05)
[2020-09-26] MEDS: Finasteride 5 MG TABLET PO SCH (16:48)
[2020-09-26] MEDS ORDERED: Chloraseptic Spray 177 ML BOTTLE MM PRN (17:05)
[2020-09-26] MEDS: traZODone 50 MG TABLET PO SCH (19:36)
[2020-09-26] MEDS: Gabapentin 300 MG CAPSULE PO SCH (19:36)
[2020-09-26] MEDS: Insulin DETEMIR 100 UNIT/ML X5UNITS SUBQ SCH (19:42)
[2020-09-26 20:47] LABS: BUN/Creatinine Ratio 47 (6-26); Blood Urea Nitrogen 37 mg/dL (8-23); Calcium 8.8 mg/dL (8.6-10.3); Carbon Dioxide 28 mEq/L (23-29); Chloride 104 mEq/L (98-107); Glucose 158 mg/dL (70-105); Osmolality,Calculated 302 (280-300); Potassium 4.2 mEq/L (3.5-5.1); Sodium 140 mEq/L (136-145); eGFR For African Americans > 60 (> 60); eGFR For Non-African Americans > 60 (> 60)
[2020-09-27] MEDS ORDERED: Fosaprepitant Dimeglumine 150 MG in 0.9 % Sodium Chloride 150 ML IVPB ONE
[2020-09-27] MEDS: Piperacillin/Tazobactam 3.375 GM in 0.9 % Sodium Chloride Mini Bag 100 ML IVPB SCH ×4 (00:11→23:14)
[2020-09-27] MEDS: MethylPREDNISolone 40 MG/ML VIAL IVP SCH ×4 (00:11→23:13)
[2020-09-27] MEDS: Insulin LISPRO 300 UNITS/3 ML VIAL SUBQ SCH ×5 (00:12→23:15)
[2020-09-27] MEDS: Ipratropium/Albuterol Neb 3 ML IH SCH ×4 (04:02→21:49)
[2020-09-27 04:59] LABS: Basophils % 0.2 %; Lymphocytes % 1.2 %; Segmented Neutrophils % 91.3 %
[2020-09-27 05:01] LABS: Basophils # 0.1 K/mcL (0.0-0.2); Hematocrit 55.9 % (37.5-50.1); Hemoglobin 16.1 g/dL (12.9-16.9); Lymphocytes # 0.3 K/mcL (0.6-4.6); Mean Corpuscular HGB Conc 28.8 g/dL (31.6-35.5); Mean Corpuscular Hemoglobin 22.9 pg (28.0-33.3); Mean Corpuscular Volume 79.6 fL (83.0-100.0); Mean Platelet Volume 8.6 fL (9.4-12.4); Monocytes # 1.4 K/mcL (0.0-1.3); Monocytes % 6.3 %; Neutrophils # 20.6 K/mcL (1.6-8.9); Nucleated Red Blood Cells 0.1 /100 WBC (0); Platelet Count 449 K/mcL (140-400); Red Blood Count 7.02 M/mcL (4.19-5.50); Red Cell Distribution Width 20.7 % (11.5-14.5); White Blood Count 22.6 K/mcL (4.3-11.1)
[2020-09-27 05:10] LABS: Alanine Aminotransferase 44 Units/L (7-52); Albumin 3.1 g/dL (3.5-5.7); Alkaline Phosphatase 130 Units/L (34-104); Aspartate Amino Transferase 21 Units/L (13-39); BUN/Creatinine Ratio 52 (6-26); Bilirubin,Total 0.3 mg/dL (0.3-1.0); Blood Urea Nitrogen 44 mg/dL (8-23); Calcium 8.8 mg/dL (8.6-10.3); Carbon Dioxide 26 mEq/L (23-29); Chloride 106 mEq/L (98-107); Glucose 64 mg/dL (70-105); Magnesium 2.4 mg/dL (1.6-2.6); Osmolality,Calculated 299 (280-300); Phosphorous 5.4 mg/dL (2.7-4.5); Potassium 5.2 mEq/L (3.5-5.1); Sodium 140 mEq/L (136-145); Total Protein 6.1 g/dL (6.4-8.9); eGFR For African Americans > 60 (> 60); eGFR For Non-African Americans > 60 (> 60)
[2020-09-27] MEDS: *HR* Heparin 5,000 UNIT/ML VIAL SQ SCH ×2 (05:43→18:03)
[2020-09-27] MEDS: Doxycycline 100 MG in 0.9 % Sodium Chloride Mini Bag 100 ML IVPB SCH ×2 (05:43→18:03)
[2020-09-27 06:01] LABS: Platelet Estimate Normal (Normal)
[2020-09-27] MEDS: FentaNYL (PF) 1,000 MCG/100 ML IV.SOLN IVC SCH ×3 (09:08→21:57)
[2020-09-27] MEDS: Gabapentin 300 MG CAPSULE PO SCH ×3 (09:14→19:40)
[2020-09-27] MEDS: DilTIAZem CD (24hr) 120 MG CAP.ER.24H PO SCH (09:14)
[2020-09-27 09:15] LABS: ABG Base Excess 3 mEq/L (-2 to 3); ABG HCO3 32 mEq/L (21-27); ABG Oxygen Saturation 100 % (95-98); ABG PCO2 66 mmHg (35-45); ABG PH 7.29 pH Units (7.32-7.45); ABG PO2 260 mmHg (85-104); ABG TCO2 34 mEq/L (20-26); Blood Gas Modality ASSIST CONTROL; Blood Gas VT 350 cc
[2020-09-27] MEDS: Furosemide 40 MG TABLET PO SCH (09:21)
[2020-09-27] MEDS: Finasteride 5 MG TABLET PO SCH (09:33)
[2020-09-27 09:43] LABS: BUN/Creatinine Ratio 51 (6-26); Blood Urea Nitrogen 45 mg/dL (8-23); Calcium 8.9 mg/dL (8.6-10.3); Carbon Dioxide 31 mEq/L (23-29); Chloride 105 mEq/L (98-107); Glucose 86 mg/dL (70-105); Lactate Dehydrogenase 559 Units/L (140-271); Osmolality,Calculated 303 (280-300); Potassium 5.1 mEq/L (3.5-5.1); Sodium 141 mEq/L (136-145); Uric Acid 9.2 mg/dL (2.3-7.6); eGFR For African Americans > 60 (> 60); eGFR For Non-African Americans > 60 (> 60)
[2020-09-27] MEDS ORDERED: Tiotropium 10 INH DOSE IH SCH (10:00)
[2020-09-27] MEDS ORDERED: Artificial Tears SOLN 15 ML BOTTLE BOTH EYES PRN (10:32)
[2020-09-27] MEDS: Vancomycin 1,500 MG/265 ML IV.SOLN IVPB SCH ×2 (10:40→21:10)
[2020-09-27] MEDS ORDERED: Fosaprepitant Dimeglumine 150 MG in 0.9 % Sodium Chloride 150 ML IVPB SCH (11:30)
[2020-09-27] MEDS: Artificial Tears SOLN 15 ML BOTTLE BOTH EYES SCH ×4 (11:39→23:14)
[2020-09-27] MEDS: Chlorhexidine Rinse 15 ML MOUTHWASH MM SCH ×2 (11:39→19:38)
[2020-09-27] MEDS ORDERED: *HR* Rocuronium Bromide 50 MG/5 ML VIAL IVP ONE (12:19)
[2020-09-27] MEDS ORDERED: *HR* Etomidate 20 MG/10 ML AMPUL IVP ONE (12:19)
[2020-09-27] MEDS ORDERED: Prochlorperazine 10 MG/2 ML VIAL IVP PRN (13:00)
[2020-09-27] MEDS ORDERED: 0.9 % Sodium Chloride 500 ML IVC SCH (13:00)
[2020-09-27] MEDS ORDERED: *HR* LORazepam 2 MG/ML VIAL IVP PRN (13:00)
[2020-09-27] MEDS ORDERED: Dexamethasone 10 MG/ML VIAL IVP SCH (13:00)
[2020-09-27] MEDS ORDERED: SODIUM CHLORIDE EXCEL BG 0.9% IVPB SCH (13:30)
[2020-09-27] MEDS ORDERED: ETOPOSIDE IVPB SCH (13:30)
[2020-09-27] MEDS ORDERED: SODIUM CHLORIDE 0.9% IV SCH (15:00)
[2020-09-27] MEDS ORDERED: CARBOPLATIN IV SCH (15:00)
[2020-09-27 15:10] LABS: BUN/Creatinine Ratio 52 (6-26); Blood Urea Nitrogen 55 mg/dL (8-23); Calcium 8.4 mg/dL (8.6-10.3); Carbon Dioxide 29 mEq/L (23-29); Chloride 107 mEq/L (98-107); Glucose 69 mg/dL (70-105); Osmolality,Calculated 307 (280-300); Phosphorous 4.4 mg/dL (2.7-4.5); Potassium 5.2 mEq/L (3.5-5.1); Sodium 142 mEq/L (136-145); Uric Acid 10.3 mg/dL (2.3-7.6); eGFR For African Americans > 60 (> 60); eGFR For Non-African Americans > 60 (> 60)
[2020-09-27] MEDS: Norepinephrine 4 MG/254 ML IV.SOLN IVC SCH (19:17)
[2020-09-27] MEDS: traZODone 50 MG TABLET PO SCH (19:38)
[2020-09-27] MEDS: Insulin DETEMIR 100 UNIT/ML X5UNITS SUBQ SCH (20:02)
[2020-09-27 22:09] LABS: ABG Base Excess 1 mEq/L (-2 to 3); ABG HCO3 31 mEq/L (21-27); ABG Oxygen Saturation 96 % (95-98); ABG PCO2 77 mmHg (35-45); ABG PH 7.21 pH Units (7.32-7.45); ABG PO2 100 mmHg (85-104); ABG TCO2 33 mEq/L (20-26); Blood Gas Modality ASSIST CONTROL; Blood Gas VT 350 cc
[2020-09-27 22:25] LABS: BUN/Creatinine Ratio 51 (6-26); Blood Urea Nitrogen 63 mg/dL (8-23); Carbon Dioxide 28 mEq/L (23-29); Chloride 109 mEq/L (98-107); Glucose 93 mg/dL (70-105); Osmolality,Calculated 312 (280-300); Potassium 5.3 mEq/L (3.5-5.1); Sodium 142 mEq/L (136-145); eGFR For African Americans > 60 (> 60); eGFR For Non-African Americans 59 (> 60)
[2020-09-27] MEDS: FentaNYL (PF) 2,500 MCG/50 ML IV.SOLN IVC SCH (23:11)
[2020-09-28] MEDS ORDERED: *HR* LORazepam 2 MG/ML VIAL IVP PRN
[2020-09-28] MEDS ORDERED: Prochlorperazine 10 MG/2 ML VIAL IVP PRN
[2020-09-28] MEDS ORDERED: 0.9 % Sodium Chloride 500 ML IVC SCH
[2020-09-28] MEDS: Artificial Tears SOLN 15 ML BOTTLE BOTH EYES SCH ×5 (03:13→20:10)
[2020-09-28 03:35] LABS: Basophils % 0.1 %; Hematocrit 45.1 % (37.5-50.1); Immature Granulocytes % 0.9 % (0-4); Lymphocytes # 0.3 K/mcL (0.6-4.6); Lymphocytes % 2.1 %; Mean Corpuscular HGB Conc 28.8 g/dL (31.6-35.5); Nucleated Red Blood Cells 0.1 /100 WBC (0); Platelet Count 416 K/mcL (140-400); Red Blood Count 5.64 M/mcL (4.19-5.50); Red Cell Distribution Width 19.9 % (11.5-14.5); Segmented Neutrophils % 90.9 %; White Blood Count 16.1 K/mcL (4.3-11.1)
[2020-09-28 03:46] LABS: Neutrophils # 14.6 K/mcL (1.6-8.9)
[2020-09-28] MEDS: Ipratropium/Albuterol Neb 3 ML IH SCH ×4 (03:48→21:50)
[2020-09-28 03:52] LABS: BUN/Creatinine Ratio 58 (6-26); Blood Urea Nitrogen 72 mg/dL (8-23); Calcium 8.3 mg/dL (8.6-10.3); Carbon Dioxide 25 mEq/L (23-29); Chloride 109 mEq/L (98-107); Glucose 108 mg/dL (70-105); Magnesium 2.5 mg/dL (1.6-2.6); Osmolality,Calculated 316 (280-300); Potassium 5.4 mEq/L (3.5-5.1); Sodium 142 mEq/L (136-145); Uric Acid 12.8 mg/dL (2.3-7.6); eGFR For African Americans > 60 (> 60); eGFR For Non-African Americans 59 (> 60)
[2020-09-28 03:58] LABS: ABG Base Excess 1 mEq/L (-2 to 3); ABG HCO3 30 mEq/L (21-27); ABG Oxygen Saturation 96 % (95-98); ABG PCO2 69 mmHg (35-45); ABG PH 7.25 pH Units (7.32-7.45); ABG PO2 96 mmHg (85-104); ABG TCO2 32 mEq/L (20-26); Blood Gas Modality ASSIST CONTROL; Blood Gas VT 350 cc
[2020-09-28] MEDS: Doxycycline 100 MG in 0.9 % Sodium Chloride Mini Bag 100 ML IVPB SCH ×2 (05:10→18:26)
[2020-09-28] MEDS: *HR* Heparin 5,000 UNIT/ML VIAL SQ SCH ×2 (05:11→18:27)
[2020-09-28] MEDS: Insulin LISPRO 300 UNITS/3 ML VIAL SUBQ SCH ×3 (05:11→18:38)
[2020-09-28] MEDS: FentaNYL (PF) 2,500 MCG/50 ML IV.SOLN IVC SCH ×2 (05:21→22:05)
[2020-09-28] MEDS: Pantoprazole 40 MG VIAL IVP SCH (08:33)
[2020-09-28] MEDS: Piperacillin/Tazobactam 3.375 GM in 0.9 % Sodium Chloride Mini Bag 100 ML IVPB SCH ×2 (08:36→16:35)
[2020-09-28] MEDS: D5% in 0.45% NACL 1,000 ML IVC SCH ×2 (08:37→16:34)
[2020-09-28] MEDS: DilTIAZem CD (24hr) 120 MG CAP.ER.24H PO SCH (08:42)
[2020-09-28] MEDS: Chlorhexidine Rinse 15 ML MOUTHWASH MM SCH ×2 (08:42→20:10)
[2020-09-28] MEDS: Gabapentin 300 MG CAPSULE PO SCH ×3 (08:42→20:12)
[2020-09-28] MEDS: Furosemide 40 MG TABLET PO SCH (08:42)
[2020-09-28] MEDS: Finasteride 5 MG TABLET PO SCH (08:42)
[2020-09-28] MEDS: MethylPREDNISolone 40 MG/ML VIAL IVP SCH ×2 (08:42→16:38)
[2020-09-28] MEDS ORDERED: Rasburicase 14 MG in 0.9 % Sodium Chloride 50 ML IV ONE (08:46)
[2020-09-28] MEDS ORDERED: Prochlorperazine 10 MG/2 ML VIAL IVP SCH (12:30)
[2020-09-28] MEDS: Norepinephrine 4 MG/254 ML IV.SOLN IVC SCH (12:41)
[2020-09-28] MEDS ORDERED: ETOPOSIDE IVPB SCH (13:00)
[2020-09-28] MEDS ORDERED: SODIUM CHLORIDE EXCEL BG 0.9% IVPB SCH (13:00)
[2020-09-28 15:29] LABS: BUN/Creatinine Ratio 57 (6-26); Blood Urea Nitrogen 78 mg/dL (8-23); Calcium 7.7 mg/dL (8.6-10.3); Carbon Dioxide 26 mEq/L (23-29); Chloride 109 mEq/L (98-107); Glucose 239 mg/dL (70-105); Osmolality,Calculated 323 (280-300); Potassium 4.5 mEq/L (3.5-5.1); Sodium 141 mEq/L (136-145); Uric Acid 4.4 mg/dL (2.3-7.6); eGFR For African Americans > 60 (> 60); eGFR For Non-African Americans 53 (> 60)
[2020-09-28] MEDS: Insulin DETEMIR 100 UNIT/ML X5UNITS SUBQ SCH (20:10)
[2020-09-28] MEDS: traZODone 50 MG TABLET PO SCH (20:10)
[2020-09-29] MEDS ORDERED: Prochlorperazine 10 MG/2 ML VIAL IVP PRN
[2020-09-29] MEDS ORDERED: Pegfilgrastim 6 MG/0.6 ML Delivery Kit SQ SCH
[2020-09-29] MEDS: MethylPREDNISolone 40 MG/ML VIAL IVP SCH ×4 (00:06→23:28)
[2020-09-29] MEDS: D5% in 0.45% NACL 1,000 ML IVC SCH ×3 (00:07→16:00)
[2020-09-29] MEDS: Insulin LISPRO 300 UNITS/3 ML VIAL SUBQ SCH ×6 (00:07→23:37)
[2020-09-29] MEDS: Piperacillin/Tazobactam 3.375 GM in 0.9 % Sodium Chloride Mini Bag 100 ML IVPB SCH ×4 (00:08→23:28)
[2020-09-29] MEDS: Artificial Tears SOLN 15 ML BOTTLE BOTH EYES SCH ×7 (00:08→23:29)
[2020-09-29 02:47] LABS: Basophils % 0.1 %; Hematocrit 41.1 % (37.5-50.1); Hemoglobin 12.1 g/dL (12.9-16.9); Immature Granulocytes % 0.8 % (0-4); Lymphocytes # 0.2 K/mcL (0.6-4.6); Lymphocytes % 1.6 %; Mean Corpuscular HGB Conc 29.4 g/dL (31.6-35.5); Mean Corpuscular Hemoglobin 22.8 pg (28.0-33.3); Mean Corpuscular Volume 77.5 fL (83.0-100.0); Mean Platelet Volume 9.1 fL (9.4-12.4); Monocytes # 0.7 K/mcL (0.0-1.3); Monocytes % 5.6 %; Neutrophils # 10.7 K/mcL (1.6-8.9); Nucleated Red Blood Cells 0.2 /100 WBC (0); Platelet Count 385 K/mcL (140-400); Red Cell Distribution Width 19.4 % (11.5-14.5); Segmented Neutrophils % 91.9 %; White Blood Count 11.6 K/mcL (4.3-11.1)
[2020-09-29 03:22] LABS: Anisocytosis 1+ (Not Present); Platelet Estimate Normal (Normal)
[2020-09-29] MEDS: Ipratropium/Albuterol Neb 3 ML IH SCH ×4 (03:35→21:13)
[2020-09-29] MEDS ORDERED: Insulin LISPRO 300 UNITS/3 ML VIAL SUBQ ONE (04:00)
[2020-09-29 04:16] LABS: ABG Base Excess 1 mEq/L (-2 to 3); ABG HCO3 27 mEq/L (21-27); ABG Oxygen Saturation 96 % (95-98); ABG PCO2 51 mmHg (35-45); ABG PH 7.34 pH Units (7.32-7.45); ABG PO2 87 mmHg (85-104); ABG TCO2 29 mEq/L (20-26); Blood Gas Modality ASSIST CONTROL; Blood Gas VT 350 cc
[2020-09-29 04:16] LABS: BUN/Creatinine Ratio 62 (6-26); Blood Urea Nitrogen 80 mg/dL (8-23); Calcium 7.7 mg/dL (8.6-10.3); Carbon Dioxide 25 mEq/L (23-29); Chloride 110 mEq/L (98-107); Glucose 360 mg/dL (70-105); Osmolality,Calculated 331 (280-300); Phosphorous 3.8 mg/dL (2.7-4.5); Potassium 4.6 mEq/L (3.5-5.1); Sodium 141 mEq/L (136-145); Uric Acid < 1.5 mg/dL (2.3-7.6); eGFR For African Americans > 60 (> 60); eGFR For Non-African Americans 56 (> 60)
[2020-09-29] MEDS: Doxycycline 100 MG in 0.9 % Sodium Chloride Mini Bag 100 ML IVPB SCH ×2 (05:41→16:56)
[2020-09-29] MEDS: *HR* Heparin 5,000 UNIT/ML VIAL SQ SCH ×2 (05:41→16:55)
[2020-09-29] MEDS: *HR* Dextrose 50 % in Water (Vial) 50 ML VIAL IVP PRN (05:49)
[2020-09-29] MEDS: Chlorhexidine Rinse 15 ML MOUTHWASH MM SCH ×2 (07:57→19:50)
[2020-09-29] MEDS: Pantoprazole 40 MG VIAL IVP SCH (07:57)
[2020-09-29] MEDS: Furosemide 40 MG TABLET PO SCH (07:59)
[2020-09-29] MEDS: Gabapentin 300 MG CAPSULE PO SCH ×3 (07:59→19:51)
[2020-09-29] MEDS: Finasteride 5 MG TABLET PO SCH (07:59)
[2020-09-29] MEDS: Norepinephrine 4 MG/254 ML IV.SOLN IVC SCH (11:42)
[2020-09-29] MEDS: Insulin DETEMIR 100 UNIT/ML X5UNITS SUBQ SCH ×2 (11:42→19:51)
[2020-09-29 13:09] LABS: BUN/Creatinine Ratio 63 (6-26); Blood Urea Nitrogen 92 mg/dL (8-23); Carbon Dioxide 27 mEq/L (23-29); Chloride 111 mEq/L (98-107); Glucose 322 mg/dL (70-105); Osmolality,Calculated 335 (280-300); Phosphorous 4.9 mg/dL (2.7-4.5); Potassium 5.2 mEq/L (3.5-5.1); Sodium 142 mEq/L (136-145); Uric Acid < 1.5 mg/dL (2.3-7.6); eGFR For African Americans 60 (> 60); eGFR For Non-African Americans 49 (> 60)
[2020-09-29] MEDS ORDERED: Prochlorperazine 10 MG/2 ML VIAL IVP SCH (13:30)
[2020-09-29] MEDS ORDERED: ETOPOSIDE IVPB SCH (14:00)
[2020-09-29] MEDS ORDERED: 0.9 % Sodium Chloride 500 ML IVC SCH (14:00)
[2020-09-29] MEDS ORDERED: *HR* LORazepam 2 MG/ML VIAL IVP PRN (14:00)
[2020-09-29] MEDS ORDERED: SODIUM CHLORIDE EXCEL BG 0.9% IVPB SCH (14:00)
[2020-09-29] MEDS: FentaNYL (PF) 2,500 MCG/50 ML IV.SOLN IVC SCH (15:00)
[2020-09-29] MEDS: Docusate Oral Soln 100 MG/10 ML UDC GTUBE SCH (19:50)
[2020-09-29] MEDS: traZODone 50 MG TABLET PO SCH (19:51)
[2020-09-30 00:33] LABS: BUN/Creatinine Ratio 74 (6-26); Blood Urea Nitrogen 90 mg/dL (8-23); Calcium 7.8 mg/dL (8.6-10.3); Carbon Dioxide 25 mEq/L (23-29); Chloride 114 mEq/L (98-107); Glucose 337 mg/dL (70-105); Osmolality,Calculated 339 (280-300); Phosphorous 4.6 mg/dL (2.7-4.5); Potassium 4.9 mEq/L (3.5-5.1); Sodium 144 mEq/L (136-145); Uric Acid < 1.5 mg/dL (2.3-7.6); eGFR For African Americans > 60 (> 60); eGFR For Non-African Americans > 60 (> 60)
[2020-09-30] MEDS: Artificial Tears SOLN 15 ML BOTTLE BOTH EYES SCH ×5 (03:13→20:56)
[2020-09-30] MEDS: Insulin LISPRO 300 UNITS/3 ML VIAL SUBQ SCH ×5 (03:22→20:57)
[2020-09-30] MEDS: Ipratropium/Albuterol Neb 3 ML IH SCH ×4 (03:27→21:33)
[2020-09-30 03:40] LABS: Immature Granulocytes % 0.6 % (0-4)
[2020-09-30 03:41] LABS: Hematocrit 44.9 % (37.5-50.1); Hemoglobin 12.7 g/dL (12.9-16.9); Lymphocytes # 0.1 K/mcL (0.6-4.6); Mean Corpuscular HGB Conc 28.3 g/dL (31.6-35.5); Mean Corpuscular Hemoglobin 22.7 pg (28.0-33.3); Mean Corpuscular Volume 80.2 fL (83.0-100.0); Mean Platelet Volume 8.9 fL (9.4-12.4); Monocytes # 0.3 K/mcL (0.0-1.3); Monocytes % 1.9 %; Neutrophils # 12.6 K/mcL (1.6-8.9); Platelet Count 361 K/mcL (140-400); Red Cell Distribution Width 20.2 % (11.5-14.5); Segmented Neutrophils % 96.5 %; White Blood Count 13.1 K/mcL (4.3-11.1)
[2020-09-30 04:03] LABS: BUN/Creatinine Ratio 74 (6-26); Blood Urea Nitrogen 90 mg/dL (8-23); Calcium 7.8 mg/dL (8.6-10.3); Carbon Dioxide 24 mEq/L (23-29); Chloride 113 mEq/L (98-107); Glucose 342 mg/dL (70-105); Osmolality,Calculated 337 (280-300); Phosphorous 4.6 mg/dL (2.7-4.5); Sodium 143 mEq/L (136-145); eGFR For African Americans > 60 (> 60); eGFR For Non-African Americans > 60 (> 60)
[2020-09-30 04:22] LABS: Anisocytosis 1+ (Not Present); Platelet Estimate Normal (Normal)
[2020-09-30 04:31] LABS: ABG Base Excess -2 mEq/L (-2 to 3); ABG HCO3 27 mEq/L (21-27); ABG Oxygen Saturation 87 % (95-98); ABG PCO2 65 mmHg (35-45); ABG PH 7.23 pH Units (7.32-7.45); ABG PO2 64 mmHg (85-104); ABG TCO2 29 mEq/L (20-26); Blood Gas Modality AF; Blood Gas VT 350 cc
[2020-09-30 04:36] LABS: ABG Base Excess -1 mEq/L (-2 to 3); ABG HCO3 27 mEq/L (21-27); ABG Oxygen Saturation 94 % (95-98); ABG PCO2 61 mmHg (35-45); ABG PH 7.26 pH Units (7.32-7.45); ABG PO2 82 mmHg (85-104); ABG TCO2 29 mEq/L (20-26); Blood Gas Modality ASSIST CONTROL; Blood Gas VT 350 cc
[2020-09-30] MEDS: D5% in 0.45% NACL 1,000 ML IVC SCH (04:48)
[2020-09-30] MEDS: *HR* Heparin 5,000 UNIT/ML VIAL SQ SCH ×2 (04:53→16:26)
[2020-09-30] MEDS: Doxycycline 100 MG in 0.9 % Sodium Chloride Mini Bag 100 ML IVPB SCH ×2 (04:53→16:23)
[2020-09-30] MEDS: FentaNYL (PF) 2,500 MCG/50 ML IV.SOLN IVC SCH (07:41)
[2020-09-30] MEDS: Finasteride 5 MG TABLET PO SCH (07:58)
[2020-09-30] MEDS: Furosemide 40 MG TABLET PO SCH (07:58)
[2020-09-30] MEDS: MethylPREDNISolone 40 MG/ML VIAL IVP SCH ×2 (07:59→16:25)
[2020-09-30] MEDS: Gabapentin 300 MG CAPSULE PO SCH ×3 (07:59→20:59)
[2020-09-30] MEDS: Pantoprazole 40 MG VIAL IVP SCH (07:59)
[2020-09-30] MEDS: Piperacillin/Tazobactam 3.375 GM in 0.9 % Sodium Chloride Mini Bag 100 ML IVPB SCH ×2 (08:00→16:22)
[2020-09-30 10:40] LABS: Uric Acid < 1.5 mg/dL (2.3-7.6)
[2020-09-30] MEDS: Chlorhexidine Rinse 15 ML MOUTHWASH MM SCH ×2 (10:41→20:58)
[2020-09-30] MEDS: Insulin DETEMIR 100 UNIT/ML X5UNITS SUBQ SCH ×2 (10:41→20:58)
[2020-09-30] MEDS: Docusate Oral Soln 100 MG/10 ML UDC GTUBE SCH ×2 (10:41→20:58)
[2020-09-30] MEDS: Norepinephrine 4 MG/254 ML IV.SOLN IVC SCH (12:43)
[2020-09-30] MEDS: traZODone 50 MG TABLET PO SCH (20:59)
[2020-10-01] MEDS: Artificial Tears SOLN 15 ML BOTTLE BOTH EYES SCH ×7 (00:06→23:03)
[2020-10-01] MEDS: Insulin LISPRO 300 UNITS/3 ML VIAL SUBQ SCH ×7 (00:07→23:03)
[2020-10-01] MEDS: MethylPREDNISolone 40 MG/ML VIAL IVP SCH ×4 (00:07→23:10)
[2020-10-01] MEDS: Piperacillin/Tazobactam 3.375 GM in 0.9 % Sodium Chloride Mini Bag 100 ML IVPB SCH ×4 (00:08→23:10)
[2020-10-01] MEDS: Ipratropium/Albuterol Neb 3 ML IH SCH ×4 (03:07→21:16)
[2020-10-01] MEDS: FentaNYL (PF) 2,500 MCG/50 ML IV.SOLN IVC SCH (03:30)
[2020-10-01 03:55] LABS: VBG Ionized Calcium 1.12 mmol/L (1.15-1.35)
[2020-10-01 04:31] LABS: ABG Base Excess 2 mEq/L (-2 to 3); ABG HCO3 28 mEq/L (21-27); ABG Oxygen Saturation 94 % (95-98); ABG PCO2 48 mmHg (35-45); ABG PH 7.37 pH Units (7.32-7.45); ABG PO2 72 mmHg (85-104); ABG TCO2 30 mEq/L (20-26); Blood Gas VT 350 cc
[2020-10-01] MEDS: Doxycycline 100 MG in 0.9 % Sodium Chloride Mini Bag 100 ML IVPB SCH ×2 (05:40→19:00)
[2020-10-01] MEDS: *HR* Heparin 5,000 UNIT/ML VIAL SQ SCH ×2 (05:40→19:00)
[2020-10-01 06:10] LABS: Basophils % 0.1 %; Hematocrit 44.8 % (37.5-50.1); Hemoglobin 13.2 g/dL (12.9-16.9); Immature Granulocytes % 0.7 % (0-4); Lymphocytes # 0.2 K/mcL (0.6-4.6); Lymphocytes % 0.9 %; Mean Corpuscular HGB Conc 29.5 g/dL (31.6-35.5); Mean Corpuscular Hemoglobin 23.4 pg (28.0-33.3); Mean Corpuscular Volume 79.6 fL (83.0-100.0); Mean Platelet Volume 9.3 fL (9.4-12.4); Monocytes # 0.2 K/mcL (0.0-1.3); Monocytes % 0.8 %; Neutrophils # 18.8 K/mcL (1.6-8.9); Platelet Count 312 K/mcL (140-400); Red Blood Count 5.63 M/mcL (4.19-5.50); Red Cell Distribution Width 20.3 % (11.5-14.5); Segmented Neutrophils % 97.5 %; White Blood Count 19.3 K/mcL (4.3-11.1)
[2020-10-01 06:18] LABS: BUN/Creatinine Ratio 90 (6-26); Blood Urea Nitrogen 84 mg/dL (8-23); Calcium 8.2 mg/dL (8.6-10.3); Carbon Dioxide 26 mEq/L (23-29); Chloride 119 mEq/L (98-107); Glucose 105 mg/dL (70-105); Osmolality,Calculated 338 (280-300); Sodium 151 mEq/L (136-145); eGFR For African Americans > 60 (> 60); eGFR For Non-African Americans > 60 (> 60)
[2020-10-01] MEDS: Chlorhexidine Rinse 15 ML MOUTHWASH MM SCH ×2 (07:29→21:21)
[2020-10-01] MEDS: Pantoprazole 40 MG VIAL IVP SCH (07:30)
[2020-10-01 08:01] LABS: VBG Ionized Calcium 1.14 mmol/L (1.15-1.35)
[2020-10-01 08:15] LABS: Lactate Dehydrogenase 454 Units/L (140-271); Magnesium 2.8 mg/dL (1.6-2.6); Phosphorous 3.3 mg/dL (2.7-4.5); Uric Acid < 1.5 mg/dL (2.3-7.6)
[2020-10-01] MEDS: Calcium Gluconate 1gm/50mL 1 GM/50 ML BAG IVPB SCH ×2 (08:15→09:54)
[2020-10-01] MEDS: Gabapentin 300 MG CAPSULE PO SCH ×3 (10:07→21:21)
[2020-10-01] MEDS: Docusate Oral Soln 100 MG/10 ML UDC GTUBE SCH ×2 (10:07→21:21)
[2020-10-01] MEDS: Furosemide 40 MG TABLET PO SCH (10:07)
[2020-10-01] MEDS: Finasteride 5 MG TABLET PO SCH (10:07)
[2020-10-01] MEDS: Insulin DETEMIR 100 UNIT/ML X5UNITS SUBQ SCH ×2 (10:08→21:34)
[2020-10-01] MEDS: Norepinephrine 4 MG/254 ML IV.SOLN IVC SCH (12:07)
[2020-10-01] MEDS: traZODone 50 MG TABLET PO SCH (21:21)
[2020-10-02] MEDS: FentaNYL (PF) 2,500 MCG/50 ML IV.SOLN IVC SCH
[2020-10-02 00:38] LABS: Appearance of Body Fluid Cloudy (Clear); Volume of Body Fluid 15 mL
[2020-10-02 00:40] LABS: Appearance of Body Fluid Cloudy (Clear)
[2020-10-02 00:41] LABS: Volume of Body Fluid 15 mL
[2020-10-02] MEDS: Ipratropium/Albuterol Neb 3 ML IH SCH ×4 (03:05→21:41)
[2020-10-02] MEDS: Insulin LISPRO 300 UNITS/3 ML VIAL SUBQ SCH ×5 (03:19→20:47)
[2020-10-02] MEDS: Artificial Tears SOLN 15 ML BOTTLE BOTH EYES SCH ×5 (03:20→21:21)
[2020-10-02 03:43] LABS: Monocytes % 0.2 %
[2020-10-02 03:44] LABS: Basophils # 0.1 K/mcL (0.0-0.2); Basophils % 0.3 %; Hematocrit 42.8 % (37.5-50.1); Hemoglobin 12.6 g/dL (12.9-16.9); Immature Granulocytes % 4.2 % (0-4); Lymphocytes # 0.3 K/mcL (0.6-4.6); Lymphocytes % 0.8 %; Mean Corpuscular HGB Conc 29.4 g/dL (31.6-35.5); Mean Corpuscular Hemoglobin 23.1 pg (28.0-33.3); Mean Corpuscular Volume 78.4 fL (83.0-100.0); Mean Platelet Volume 9.1 fL (9.4-12.4); Monocytes # 0.1 K/mcL (0.0-1.3); Neutrophils # 32.1 K/mcL (1.6-8.9); Platelet Count 246 K/mcL (140-400); Red Blood Count 5.46 M/mcL (4.19-5.50); Red Cell Distribution Width 20.4 % (11.5-14.5); Segmented Neutrophils % 94.5 %
[2020-10-02 03:45] LABS: VBG Ionized Calcium 1.15 mmol/L (1.15-1.35)
[2020-10-02 03:59] LABS: Platelet Estimate Normal (Normal)
[2020-10-02 04:02] LABS: BUN/Creatinine Ratio 83 (6-26); Blood Urea Nitrogen 70 mg/dL (8-23); Calcium 8.3 mg/dL (8.6-10.3); Carbon Dioxide 28 mEq/L (23-29); Chloride 119 mEq/L (98-107); Glucose 112 mg/dL (70-105); Lactate Dehydrogenase 436 Units/L (140-271); Magnesium 2.6 mg/dL (1.6-2.6); Osmolality,Calculated 335 (280-300); Phosphorous 2.9 mg/dL (2.7-4.5); Potassium 4.5 mEq/L (3.5-5.1); Sodium 152 mEq/L (136-145); Uric Acid 1.9 mg/dL (2.3-7.6); eGFR For African Americans > 60 (> 60); eGFR For Non-African Americans > 60 (> 60)
[2020-10-02 04:15] LABS: ABG Base Excess 4 mEq/L (-2 to 3); ABG HCO3 30 mEq/L (21-27); ABG Oxygen Saturation 96 % (95-98); ABG PCO2 47 mmHg (35-45); ABG PH 7.41 pH Units (7.32-7.45); ABG PO2 80 mmHg (85-104); ABG TCO2 31 mEq/L (20-26); Blood Gas Modality ASSIST CONTROL; Blood Gas VT 350 cc
[2020-10-02] MEDS: Doxycycline 100 MG in 0.9 % Sodium Chloride Mini Bag 100 ML IVPB SCH ×2 (05:34→17:49)
[2020-10-02] MEDS: *HR* Heparin 5,000 UNIT/ML VIAL SQ SCH ×2 (05:34→17:50)
[2020-10-02] MEDS: Chlorhexidine Rinse 15 ML MOUTHWASH MM SCH ×2 (07:30→21:21)
[2020-10-02] MEDS: Insulin DETEMIR 100 UNIT/ML X5UNITS SUBQ SCH ×2 (07:30→21:21)
[2020-10-02] MEDS: Piperacillin/Tazobactam 3.375 GM in 0.9 % Sodium Chloride Mini Bag 100 ML IVPB SCH ×2 (07:31→16:27)
[2020-10-02] MEDS: MethylPREDNISolone 40 MG/ML VIAL IVP SCH ×2 (07:32→16:27)
[2020-10-02] MEDS: Pantoprazole 40 MG VIAL IVP SCH (07:32)
[2020-10-02] MEDS: Finasteride 5 MG TABLET PO SCH (07:32)
[2020-10-02] MEDS: Gabapentin 300 MG CAPSULE PO SCH ×3 (07:33→21:23)
[2020-10-02] MEDS: Docusate Oral Soln 100 MG/10 ML UDC GTUBE SCH ×2 (07:33→20:47)
[2020-10-02] MEDS: Furosemide 40 MG TABLET PO SCH (07:33)
[2020-10-02] MEDS: *HR* Metoprolol 5 MG/5 ML VIAL IVP PRN ×2 (08:40→14:45)
[2020-10-02] MEDS: *HR* Dextrose 50 % in Water (Vial) 50 ML VIAL IVP PRN ×3 (11:14→20:47)
[2020-10-02] MEDS: Norepinephrine 4 MG/254 ML IV.SOLN IVC SCH (11:32)
[2020-10-02] MEDS: DilTIAZem 50 MG/50 ML IV.SOLN IVC SCH ×2 (17:49→21:30)
[2020-10-02] MEDS ORDERED: *HR* Metoprolol 5 MG/5 ML VIAL IVP ONE ×2 (19:46→19:48)
[2020-10-02] MEDS: traZODone 50 MG TABLET PO SCH (21:23)
[2020-10-02] MEDS: Morphine Sulfate 2 MG/ML SYRINGE IVP PRN (21:58)
[2020-10-03] MEDS: Piperacillin/Tazobactam 3.375 GM in 0.9 % Sodium Chloride Mini Bag 100 ML IVPB SCH ×2 (00:02→07:46)
[2020-10-03] MEDS: MethylPREDNISolone 40 MG/ML VIAL IVP SCH ×2 (00:02→07:46)
[2020-10-03] MEDS: DilTIAZem 50 MG/50 ML IV.SOLN IVC SCH ×3 (00:03→06:12)
[2020-10-03] MEDS: *HR* Metoprolol 5 MG/5 ML VIAL IVP PRN (00:05)
[2020-10-03] MEDS: Artificial Tears SOLN 15 ML BOTTLE BOTH EYES SCH ×4 (00:17→11:59)
[2020-10-03] MEDS: Insulin LISPRO 300 UNITS/3 ML VIAL SUBQ SCH ×4 (00:17→11:55)
[2020-10-03] MEDS: Morphine Sulfate 2 MG/ML SYRINGE IVP PRN ×2 (01:26→11:54)
[2020-10-03] MEDS ORDERED: Levalbuterol Neb 1.25 MG/3 ML IH PRN (01:46)
[2020-10-03] MEDS: Ipratropium/Albuterol Neb 3 ML IH SCH ×2 (03:20→10:59)
[2020-10-03] MEDS: Dexmedetomidine HCl 400 MCG/100 ML MLS IVC SCH ×3 (03:30→12:28)
[2020-10-03] MEDS: *HR* Dextrose 50 % in Water (Vial) 50 ML VIAL IVP PRN (03:44)
[2020-10-03] MEDS: D5% in Water 1,000 ML IVC PRN ×2 (03:45→13:11)
[2020-10-03 03:51] LABS: VBG Ionized Calcium 1.19 mmol/L (1.15-1.35)
[2020-10-03 03:51] LABS: Lymphocytes % 0.8 %; Monocytes % 0.1 %
[2020-10-03 03:52] LABS: Basophils # 0.2 K/mcL (0.0-0.2); Basophils % 0.5 %; Hematocrit 50.1 % (37.5-50.1); Hemoglobin 14.3 g/dL (12.9-16.9); Immature Granulocytes % 7.8 % (0-4); Mean Corpuscular HGB Conc 28.5 g/dL (31.6-35.5); Mean Corpuscular Hemoglobin 23.6 pg (28.0-33.3); Mean Corpuscular Volume 82.8 fL (83.0-100.0); Platelet Count 178 K/mcL (140-400); Red Blood Count 6.05 M/mcL (4.19-5.50)
[2020-10-03 04:12] LABS: BUN/Creatinine Ratio 80 (6-26); Blood Urea Nitrogen 57 mg/dL (8-23); Calcium 8.4 mg/dL (8.6-10.3); Carbon Dioxide 32 mEq/L (23-29); Chloride 123 mEq/L (98-107); Glucose 132 mg/dL (70-105); Lactate Dehydrogenase 545 Units/L (140-271); Magnesium 2.5 mg/dL (1.6-2.6); Osmolality,Calculated 344 (280-300); Phosphorous 3.5 mg/dL (2.7-4.5); Potassium 4.7 mEq/L (3.5-5.1); Sodium 158 mEq/L (136-145); Uric Acid 3.2 mg/dL (2.3-7.6); eGFR For African Americans > 60 (> 60); eGFR For Non-African Americans > 60 (> 60)
[2020-10-03 04:41] LABS: Anisocytosis 1+ (Not Present); Platelet Estimate Normal (Normal)
[2020-10-03 04:46] LABS: Lymphocytes # 0.2 K/mcL (0.6-4.6)
[2020-10-03 04:47] LABS: White Blood Count 30.5 K/mcL (4.3-11.1)
[2020-10-03] MEDS: Doxycycline 100 MG in 0.9 % Sodium Chloride Mini Bag 100 ML IVPB SCH (05:05)
[2020-10-03] MEDS: *HR* Heparin 5,000 UNIT/ML VIAL SQ SCH (05:06)
[2020-10-03] MEDS: Docusate Oral Soln 100 MG/10 ML UDC GTUBE SCH (07:39)
[2020-10-03] MEDS: Gabapentin 300 MG CAPSULE PO SCH ×2 (07:39→11:05)
[2020-10-03] MEDS: Furosemide 40 MG TABLET PO SCH (07:39)
[2020-10-03] MEDS: Finasteride 5 MG TABLET PO SCH (07:40)
[2020-10-03] MEDS: Chlorhexidine Rinse 15 ML MOUTHWASH MM SCH (07:46)
[2020-10-03] MEDS: Pantoprazole 40 MG VIAL IVP SCH (07:46)
[2020-10-03] MEDS: Insulin DETEMIR 100 UNIT/ML X5UNITS SUBQ SCH (09:25)
[2020-10-03] MEDS ORDERED: Ertapenem 1,000 MG in 0.9 % Sodium Chloride Mini Bag 100 ML IVPB SCH (10:00)
[2020-10-03] MEDS: Norepinephrine 4 MG/254 ML IV.SOLN IVC SCH (11:05)
[2020-10-03 11:44] LABS: BUN/Creatinine Ratio 74 (6-26); Blood Urea Nitrogen 53 mg/dL (8-23); Calcium 8.3 mg/dL (8.6-10.3); Carbon Dioxide 31 mEq/L (23-29); Chloride 122 mEq/L (98-107); Glucose 147 mg/dL (70-105); Osmolality,Calculated 339 (280-300); Potassium 4.5 mEq/L (3.5-5.1); Sodium 156 mEq/L (136-145); eGFR For African Americans > 60 (> 60); eGFR For Non-African Americans > 60 (> 60)
[2020-10-03] MEDS ORDERED: Haloperidol Lactate 5 MG/ML VIAL IVP PRN (14:02)
[2020-10-03] MEDS: *HR* LORazepam 2 MG/ML VIAL IVP PRN ×3 (14:29→22:30)
[2020-10-03] MEDS: *HR* FentaNYL (PF) 100 MCG/2 ML VIAL IVP PRN ×4 (14:29→22:29)
[2020-10-04] MEDS: *HR* FentaNYL (PF) 100 MCG/2 ML VIAL IVP PRN (05:25)
[2020-10-04] MEDS ORDERED: Acetaminophen 650 MG RECTAL SUPP RC PRN (09:40)
[2020-10-04] MEDS ORDERED: *HR* FentaNYL (PF) 100 MCG/2 ML VIAL IVP PRN ×2 (09:41→09:49)
[2020-10-04] MEDS: *HR* LORazepam 2 MG/ML VIAL IVP PRN ×2 (09:41→12:46)
[2020-10-04] MEDS ORDERED: Scopolamine Patch 1.5 MG PATCH.TD72 TD SCH (09:45)
[2020-10-04 10:19] VITALS: BP 89/57
[2020-10-04] MEDS: Atropine 1% Opth Drops 100 DROP/5 ML BOTTLE SL PRN ×2 (10:49→13:22)
[2020-10-04] MEDS ORDERED: Morphine Sulfate Oral CONC 10 MG/0.5 ML ORAL.SYG SL SCH (12:00)
[2020-10-18] MEDS ORDERED: *HR* LORazepam 2 MG/ML VIAL IVP PRN
[2020-10-18] MEDS ORDERED: CARBOPLATIN IV SCH
[2020-10-18] MEDS ORDERED: ETOPOSIDE IV SCH
[2020-10-18] MEDS ORDERED: SODIUM CHLORIDE EXCEL BG 0.9% IV SCH
[2020-10-18] MEDS ORDERED: SODIUM CHLORIDE 0.9% IV SCH
[2020-10-18] MEDS ORDERED: 0.9 % Sodium Chloride 500 ML IVC SCH
[2020-10-18] MEDS ORDERED: Prochlorperazine 10 MG/2 ML VIAL IVP PRN
[2020-10-18] MEDS ORDERED: Fosaprepitant Dimeglumine 150 MG in 0.9 % Sodium Chloride 150 ML IVPB ONE
[2020-10-18] MEDS ORDERED: Dexamethasone 10 MG/ML VIAL IVP ONE
[2020-10-19] MEDS ORDERED: 0.9 % Sodium Chloride 500 ML IVC SCH
[2020-10-19] MEDS ORDERED: SODIUM CHLORIDE EXCEL BG 0.9% IV SCH
[2020-10-19] MEDS ORDERED: ETOPOSIDE IV SCH
[2020-10-19] MEDS ORDERED: Prochlorperazine 10 MG/2 ML VIAL IVP PRN
[2020-10-19] MEDS ORDERED: *HR* LORazepam 2 MG/ML VIAL IVP PRN
[2020-10-20] MEDS ORDERED: 0.9 % Sodium Chloride 500 ML IVC SCH
[2020-10-20] MEDS ORDERED: ETOPOSIDE IV SCH
[2020-10-20] MEDS ORDERED: *HR* LORazepam 2 MG/ML VIAL IVP PRN
[2020-10-20] MEDS ORDERED: Pegfilgrastim 6 MG/0.6 ML Delivery Kit SQ SCH
[2020-10-20] MEDS ORDERED: Prochlorperazine 10 MG/2 ML VIAL IVP PRN
[2020-10-20] MEDS ORDERED: SODIUM CHLORIDE EXCEL BG 0.9% IV SCH
[2020-11-08] MEDS ORDERED: *HR* LORazepam 2 MG/ML VIAL IVP PRN
[2020-11-08] MEDS ORDERED: Prochlorperazine 10 MG/2 ML VIAL IVP PRN
[2020-11-08] MEDS ORDERED: 0.9 % Sodium Chloride 500 ML IVC SCH
[2020-11-08] MEDS ORDERED: CARBOPLATIN IV SCH
[2020-11-08] MEDS ORDERED: SODIUM CHLORIDE EXCEL BG 0.9% IV SCH
[2020-11-08] MEDS ORDERED: ETOPOSIDE IV SCH
[2020-11-08] MEDS ORDERED: Fosaprepitant Dimeglumine 150 MG in 0.9 % Sodium Chloride 150 ML IVPB ONE
[2020-11-08] MEDS ORDERED: Dexamethasone 10 MG/ML VIAL IVP ONE
[2020-11-08] MEDS ORDERED: SODIUM CHLORIDE 0.9% IV SCH
[2020-11-09] MEDS ORDERED: 0.9 % Sodium Chloride 500 ML IVC SCH
[2020-11-09] MEDS ORDERED: *HR* LORazepam 2 MG/ML VIAL IVP PRN
[2020-11-09] MEDS ORDERED: ETOPOSIDE IV SCH
[2020-11-09] MEDS ORDERED: SODIUM CHLORIDE EXCEL BG 0.9% IV SCH
[2020-11-09] MEDS ORDERED: Prochlorperazine 10 MG/2 ML VIAL IVP PRN
[2020-11-10] MEDS ORDERED: Pegfilgrastim 6 MG/0.6 ML Delivery Kit SQ SCH
[2020-11-10] MEDS ORDERED: Prochlorperazine 10 MG/2 ML VIAL IVP PRN
[2020-11-10] MEDS ORDERED: SODIUM CHLORIDE EXCEL BG 0.9% IV SCH
[2020-11-10] MEDS ORDERED: ETOPOSIDE IV SCH
[2020-11-10] MEDS ORDERED: 0.9 % Sodium Chloride 500 ML IVC SCH
[2020-11-10] MEDS ORDERED: *HR* LORazepam 2 MG/ML VIAL IVP PRN
[2020-11-29] MEDS ORDERED: ETOPOSIDE IV SCH
[2020-11-29] MEDS ORDERED: *HR* LORazepam 2 MG/ML VIAL IVP PRN
[2020-11-29] MEDS ORDERED: Prochlorperazine 10 MG/2 ML VIAL IVP PRN
[2020-11-29] MEDS ORDERED: SODIUM CHLORIDE 0.9% IV SCH
[2020-11-29] MEDS ORDERED: SODIUM CHLORIDE EXCEL BG 0.9% IV SCH
[2020-11-29] MEDS ORDERED: CARBOPLATIN IV SCH
[2020-11-29] MEDS ORDERED: Fosaprepitant Dimeglumine 150 MG in 0.9 % Sodium Chloride 150 ML IVPB ONE
[2020-11-29] MEDS ORDERED: 0.9 % Sodium Chloride 500 ML IVC SCH
[2020-11-29] MEDS ORDERED: Dexamethasone 10 MG/ML VIAL IVP ONE
[2020-11-30] MEDS ORDERED: *HR* LORazepam 2 MG/ML VIAL IVP PRN
[2020-11-30] MEDS ORDERED: SODIUM CHLORIDE EXCEL BG 0.9% IV SCH
[2020-11-30] MEDS ORDERED: 0.9 % Sodium Chloride 500 ML IVC SCH
[2020-11-30] MEDS ORDERED: Prochlorperazine 10 MG/2 ML VIAL IVP PRN
[2020-11-30] MEDS ORDERED: ETOPOSIDE IV SCH
[2020-12-01] MEDS ORDERED: ETOPOSIDE IV SCH
[2020-12-01] MEDS ORDERED: 0.9 % Sodium Chloride 500 ML IVC SCH
[2020-12-01] MEDS ORDERED: SODIUM CHLORIDE EXCEL BG 0.9% IV SCH
[2020-12-01] MEDS ORDERED: *HR* LORazepam 2 MG/ML VIAL IVP PRN
[2020-12-01] MEDS ORDERED: Pegfilgrastim 6 MG/0.6 ML Delivery Kit SQ SCH
[2020-12-01] MEDS ORDERED: Prochlorperazine 10 MG/2 ML VIAL IVP PRN
== END 2020-10-04 15:09 | disposition expired | DRG 870 ==
LOC: ICNU → OBSVTOIN 23:08 → 2ANU 10-03 21:06
PROVIDERS: ADMIT Internal Medicine; ATTEND Internal Medicine